=== PATIENT | female | born 1945 | race Caucasian/White ===

== ENCOUNTER → 2016-11-04 | Outpatient (CLI) | payer MEDICARE ==
[2016-11-04 07:21] LABS: Blood Urea Nitrogen 18 mg/dL (7-17); Non-African American GFR(MDRD) >60 (>60 ml/min/1.73 sqM)
--- NOTE | 2016-11-04 08:06 | CT ---
EXAMINATION TYPE: CT chest w con DATE OF EXAM: 11/04/2016 7:54 AM COMPARISON: NONE HISTORY: Follow up to lung mass CT DLP: 156.7 mGycm Automated exposure control for dose reduction was used. CONTRAST: CT scan of the chest is performed with IV Contrast, patient injected with 100 mL of Omnipaque 300. FINDINGS: LUNGS: Again noted is a pleural-based mass right lower lobe posteriorly which measures 3.9 x 2.6 cm c urrently versus 3.9 x 2.6 cm on the prior examination. Again noted is mild associated internal calcif ication. No evidence for chest wall invasion at this time. No associated bony destructive process. No additional masses are evident. Lingular nodular density is unchanged and measures approximately 5.3 mm. No additional nodules are seen with certainty at this point in time. MEDIASTINUM: There are no greater than 1 cm hilar or mediastinal lymph nodes. No pericardial effusi on is seen. Mild atheromatous changes seen of the thoracic aorta with the ectasia is seen and no evid ence for aneurysm. The heart is at the upper limits of normal. Coronary artery calcifications are aga in noted. UPPER ABDOMEN: No significant abnormality appreciated. OTHER: No additional significant abnormality is seen. IMPRESSION: 1. Stable pleural-based mass right lower lobe which has been sampled previously.
== END | disposition home or self-care (01) ==
LOC: RADCTMAIN 06:43
PROVIDERS: ATTEND Thoracic Surgery (Cardiothoracic Vascular Surgery)
DX: R22.2 Localized swelling, mass and lump, trunk (principal)
CPT/HCPCS: 82565; 84520; 71260; 36415; Q9967

== ENCOUNTER → 2017-10-26 | Outpatient (CLI) | payer MEDICARE ==
--- NOTE | 2017-10-26 14:00 | CT ---
EXAMINATION TYPE: CT chest wo con DATE OF EXAM: 10/26/2017 COMPARISON: CT 11/04/[address] 02/13/2016 HISTORY: Follow up scan per patient, chest mass CT DLP: 493 mGycm. Automated Exposure Control for Dose Reduction was Utilized. TECHNIQUE: CT scan of the thorax is performed without IV contrast. FINDINGS: LUNGS: The lungs are grossly clear, there is no concerning parenchymal mass or nodule identified. T here is no pleural effusion or pneumothorax seen. The tracheobronchial tree is patent. MEDIASTINUM: Lack of IV contrast is noted to limit evaluation for mediastinal and especially hilar ad enopathy. There are no definitive greater than 1 cm hilar or mediastinal lymph nodes. No cardiomega ly or pericardial effusion is seen. OTHER: Ascending aorta measures approximately 3.7 cm, there are coronary artery calcifications. Poste rior diaphragmatic hernia on the right. Localized mixed density focus at this level along the posteri or pleural surface shows a similar appearance and measures approximately 4.1 x 2.3 centimeters. There may be a nonobstructive calcification within each kidney. Spinous process of L2 shows an irregular a ppearance but is stable. IMPRESSION: Findings are essentially stable.
== END | disposition home or self-care (01) ==
LOC: RADCTMAIN 12:25
PROVIDERS: ATTEND Thoracic Surgery (Cardiothoracic Vascular Surgery)
DX: R22.2 Localized swelling, mass and lump, trunk (principal)
CPT/HCPCS: 71250

== ENCOUNTER → 2018-03-12 | Outpatient (CLI) | payer MEDICARE ==
--- NOTE | 2018-03-15 10:12 | MM ---
Reason for exam: screening (asymptomatic). Last mammogram was performed 3 years and 6 months ago. History: Patient is postmenopausal. Physical Findings: A clinical breast exam by your physician is recommended on an annual basis and results should be correlated with mammographic findings. MG Screening Mammo w CAD Bilateral CC and MLO view(s) were taken. Prior study comparison: September 14, 2014, bilateral MG screening mammo w CAD. April 28, 2005, bilateral screening mammogram w/CAD. The breast tissue is heterogeneously dense. This may lower the sensitivity of mammography. Stable benign calcifications. There is no discrete abnormality. No significant changes when compared with prior studies. ASSESSMENT: Benign, BI-RAD 2 RECOMMENDATION: Routine screening mammogram of both breasts in 1 year.
== END | disposition home or self-care (01) ==
LOC: RADMAMWWP 09:23
PROVIDERS: ATTEND Family Medicine
DX: Z12.31 Encounter for screening mammogram for malignant neoplasm of breast (principal)
CPT/HCPCS: 77067

== ENCOUNTER → 2019-09-01 | Outpatient (CLI) | payer MEDICARE ==
--- NOTE | 2019-09-05 09:02 | MM ---
Reason for exam: screening (asymptomatic). Last mammogram was performed 1 year and 6 months ago. History: Patient is postmenopausal. Physical Findings: A clinical breast exam by your physician is recommended on an annual basis and results should be correlated with mammographic findings. MG Screening Mammo w CAD Bilateral CC and MLO view(s) were taken. Prior study comparison: March 12, 2018, bilateral MG screening mammo w CAD. September 14, 2014, bilateral MG screening mammo w CAD. There are benign appearing round calcifications in the left breast. No significant changes when compared with prior studies. ASSESSMENT: Benign, BI-RAD 2 RECOMMENDATION: Routine screening mammogram of both breasts in 1 year.
== END | disposition home or self-care (01) ==
LOC: RADMAMWWP 13:39
PROVIDERS: ATTEND Family Medicine
DX: Z12.31 Encounter for screening mammogram for malignant neoplasm of breast (principal)
CPT/HCPCS: 77067

== ENCOUNTER → 2021-05-23 | Outpatient (CLI) | payer MEDICARE ==
--- NOTE | 2021-05-27 09:51 | MM ---
Reason for exam: screening (asymptomatic). Last mammogram was performed 1 year and 9 months ago. History: Patient is postmenopausal. Physical Findings: A clinical breast exam by your physician is recommended on an annual basis and results should be correlated with mammographic findings. MG Screening Mammo w CAD Bilateral CC and MLO view(s) were taken. Prior study comparison: September 01, 2019, bilateral MG screening mammo w CAD. March 12, 2018, bilateral MG screening mammo w CAD. The breast tissue is heterogeneously dense. This may lower the sensitivity of mammography. There are benign appearing round calcifications in the left breast. No significant changes when compared with prior studies. ASSESSMENT: Benign, BI-RAD 2 RECOMMENDATION: Routine screening mammogram of both breasts in 1 year.
== END | disposition home or self-care (01) ==
LOC: RADMAMWWP 14:46
PROVIDERS: ATTEND Family Medicine
DX: Z12.31 Encounter for screening mammogram for malignant neoplasm of breast (principal); Z78.0 Asymptomatic menopausal state
CPT/HCPCS: 77067

== ENCOUNTER → 2022-05-30 | Outpatient (CLI) | payer MEDICARE ==
--- NOTE | 2022-06-02 19:32 | MM ---
Reason for Exam: Screening (asymptomatic). Last screening mammogram was performed 12 month(s) ago. Patient History: Menarche at age 10. First Full-Term at age 19. Postmenopausal. Risk Values: Elsie 5 year model risk: 1.4%. NCI Lifetime model risk: 2.7%. Prior Study Comparison: 03/12/2018 Bilateral Screening Mammogram, [facility]. 09/01/2019 Bilateral Screening Mammogram, [facility]. 05/23/2021 Bilateral Screening Mammogram, [facility]. Tissue Density: The breast tissue is heterogeneously dense. This may lower the sensitivity of mammography. Findings: Analyzed By CAD. Benign bilateral oil cyst calcifications. There is no suspicious group of microcalcifications or new suspicious mass in either breast. Overall Assessment: Benign, BI-RAD 2 Management: Screening Mammogram of both breasts in 1 year. 1. Patient should continue monthly self breast exams. 2. A clinical breast exam by your physician is recommended on an annual basis. 3. This exam should not preclude additional follow-up of suspicious palpable abnormalities. Electronically signed and approved by: Alistair Díaz M.D. Radiologist
== END | disposition home or self-care (01) ==
LOC: RADMAMWWP 15:43
PROVIDERS: ATTEND Family Medicine
DX: Z12.31 Encounter for screening mammogram for malignant neoplasm of breast (principal); Z78.0 Asymptomatic menopausal state
CPT/HCPCS: 77067

== ENCOUNTER 2022-06-05 08:21 | Inpatient (IN) | payer MEDICARE ==
[2022-06-05] MEDS ORDERED: methylPREDNISolone SOD SUCCI 125 MG/2 ML VIAL IV STA (08:32)
[2022-06-05] MEDS ORDERED: FAMOTIDINE 20 MG/2 ML VIAL IV STA (08:32)
[2022-06-05] MEDS ORDERED: diphenhydrAMINE 50 MG/ML 1 ML VIAL IVP STA (08:32)
[2022-06-05] MEDS ORDERED: TRANEXAMIC ACID 1,000 MG in SODIUM CHLORIDE 0.9% 100 ML IVPB ONE (08:36)
[2022-06-05] MEDS ORDERED: SUCCINYLCHOLINE CHLORIDE 200 MG/10 ML VIAL IV STA (08:50)
[2022-06-05] MEDS ORDERED: PROPOFOL 10 MG/ML 20 ML VIAL IV STA (08:50)
--- NOTE | 2022-06-05 09:03 | ED ---
Allergic Reaction HPI - General Source: patient, RN notes reviewed Mode of arrival: ambulatory Limitations: no limitations <Chau Rasheed - Last Filed: 06/05/22 09:03> <Marci Carr - Last Filed: 06/08/22 23:09> - General Chief complaint: Allergic Reaction Stated complaint: Allergic Reaction Time Seen by Provider: 06/05/22 08:25 - History of Present Illness Initial Comments: This a 77-year-old female presents emergency Department with chief complaint of throat, tongue swelling. Patient states that she woke up to this. Patient states she woke up around 5 does not seem to be getting worse. She does not kay t she had an episode similar to this but not this severe she took Benadryl and improved. doesn't admit that she is on lisinopril. Patient denies any other new medications denies taking medications prior arrival. She states it is hard to talk, hard to swallow at this time. She has no known ALLERGIES otherwise. (Chau Rasheed) - Related Data Home Medications Medication Instructions Recorded Confirmed lisinopriL 40 mg PO DAILY 06/05/22 06/05/22 Allergies Allergy/AdvReac Type Severity Reaction Status Date / Time lisinopril Allergy Anaphylaxis Verified 06/05/22 16:10 Review of Systems ROS Other: All systems not noted in ROS Statement are negative. <Chau Rasheed - Last Filed: 06/05/22 09:03> ROS Other: All systems not noted in ROS Statement are negative. <Marci Carr - Last Filed: 06/08/22 23:09> ROS Statement: Those systems with pertinent positive or pertinent negative responses have been documented in the HPI. Past Medical History Past Medical History: Hypertension Additional Past Medical History / Comment(s): Lung mass, Kidney stone History of Any Multi-Drug Resistant Organisms: None Reported Past Surgical History: No Surgical Hx Reported Additional Past Surgical History / Comment(s): no surgeries Past Anesthesia/Blood Transfusion Reactions: No Reported Reaction Past Psychological History: No Psychological Hx Reported Smoking Status: Current every day smoker Past Alcohol Use History: None Reported, Occasional Past Drug Use History: None Reported - Past Family History Father Family Medical History: No Reported History <Chau Rasheed - Last Filed: 06/05/22 09:03> General Exam Limitations: no limitations General appearance: alert, in distress Head exam: Present: atraumatic, normocephalic, normal inspection Eye exam: Present: normal appearance, PERRL, EOMI. Absent: scleral icterus, conjunctival injection, periorbital swelling ENT exam: Present: mucous membranes moist, TM's normal bilaterally. Absent: normal oropharynx (Significant angioedema, patient is drooling, difficulty swallow secretions.) Neck exam: Present: normal inspection, full ROM. Absent: tenderness, meningismus, lymphadenopathy Respiratory exam: Present: normal lung sounds bilaterally. Absent: respiratory distress, wheezes, rales, rhonchi, stridor Cardiovascular Exam: Present: regular rate, normal rhythm, normal heart sounds. Absent: systolic murmur, diastolic murmur, rubs, gallop, clicks Neurological exam: Present: alert Skin exam: Present: warm, dry, intact, normal color. Absent: rash <Chau Rasheed M - Last Filed: 06/05/22 09:03> Course Vital Signs 06/05/22 06/05/22 06/05/22 08:24 08:34 08:40 Temperature 98 F Pulse Rate 89 83 85 Respiratory 14 9 L Rate Blood Pressure 204/99 194/102 O2 Sat by Pulse 97 97 95 Oximetry Fraction of Inspired Oxygen (FIO2) 06/05/22 06/05/22 06/05/22 08:50 09:00 09:10 Temperature Pulse Rate 87 83 79 Respiratory 18 24 16 Rate Blood Pressure 195/96 152/112 173/98 O2 Sat by Pulse 100 99 99 Oximetry Fraction of Inspired Oxygen (FIO2) 06/05/22 06/05/22 06/05/22 09:11 09:14 09:20 Temperature Pulse Rate 91 Respiratory 18 Rate Blood Pressure 127/65 O2 Sat by Pulse 99 Oximetry Fraction of 100 100 Inspired Oxygen (FIO2) 06/05/22 06/05/22 06/05/22 09:30 09:40 09:43 Temperature Pulse Rate 85 82 Respiratory 16 20 Rate Blood Pressure 171/83 131/67 O2 Sat by Pulse 99 99 Oximetry Fraction of 50 Inspired Oxygen (FIO2) 06/05/22 06/05/22 06/05/22 09:50 10:00 10:10 Temperature Pulse Rate 75 77 75 Respiratory 18 22 18 Rate Blood Pressure 84/47 60/35 87/55 O2 Sat by Pulse 98 98 98 Oximetry Fraction of Inspired Oxygen (FIO2) 06/05/22 06/05/22 06/05/22 10:20 10:30 10:40 Temperature Pulse Rate 76 80 70 Respiratory 18 16 18 Rate Blood Pressure 115/62 126/87 154/99 O2 Sat by Pulse 99 99 99 Oximetry Fraction of Inspired Oxygen (FIO2) 06/05/22 06/05/22 06/05/22 10:50 11:00 11:10 Temperature Pulse Rate 71 72 70 Respiratory 18 16 18 Rate Blood Pressure 88/51 86/48 104/68 O2 Sat by Pulse 98 98 99 Oximetry Fraction of Inspired Oxygen (FIO2) 06/05/22 06/05/22 06/05/22 11:20 11:30 11:40 Temperature Pulse Rate 74 71 Respiratory 16 18 Rate Blood Pressure 104/60 124/78 O2 Sat by Pulse 98 99 Oximetry Fraction of 50 Inspired Oxygen (FIO2) 06/05/22 06/05/22 06/05/22 12:00 12:30 13:00 Temperature Pulse Rate 71 75 74 Respiratory 18 24 18 Rate Blood Pressure 131/69 145/82 139/71 O2 Sat by Pulse 100 100 98 Oximetry Fraction of Inspired Oxygen (FIO2) 06/05/22 06/05/22 06/05/22 13:30 14:00 14:30 Temperature Pulse Rate 72 76 75 Respiratory 18 18 18 Rate Blood Pressure 109/64 113/66 138/74 O2 Sat by Pulse 99 100 100 Oximetry Fraction of Inspired Oxygen (FIO2) 06/05/22 06/05/22 06/05/22 15:00 15:30 15:59 Temperature Pulse Rate 73 75 Respiratory 18 18 Rate Blood Pressure 127/67 100/56 O2 Sat by Pulse 97 98 Oximetry Fraction of 50 Inspired Oxygen (FIO2) 06/05/22 06/05/22 06/05/22 16:00 16:09 16:24 Temperature Pulse Rate 79 76 74 Respiratory 16 Rate Blood Pressure 109/63 O2 Sat by Pulse 99 Oximetry Fraction of Inspired Oxygen (FIO2) 06/05/22 06/05/22 06/05/22 16:30 17:00 17:30 Temperature Pulse Rate 75 78 78 Respiratory 18 18 18 Rate Blood Pressure 135/75 122/62 121/67 O2 Sat by Pulse 98 98 98 Oximetry Fraction of Inspired Oxygen (FIO2) 06/05/22 06/05/22 06/05/22 18:00 18:30 19:00 Temperature Pulse Rate 79 79 79 Respiratory 18 18 18 Rate Blood Pressure 128/65 129/69 139/75 O2 Sat by Pulse 98 99 98 Oximetry Fraction of Inspired Oxygen (FIO2) 06/05/22 06/05/22 06/05/22 19:22 19:26 19:30 Temperature Pulse Rate 80 81 Respiratory 18 Rate Blood Pressure 137/72 O2 Sat by Pulse 99 Oximetry Fraction of 50 Inspired Oxygen (FIO2) 06/05/22 06/05/22 06/05/22 19:38 20:00 20:30 Temperature Pulse Rate 80 82 81 Respiratory 18 18 Rate Blood Pressure 141/71 152/77 O2 Sat by Pulse 99 98 Oximetry Fraction of Inspired Oxygen (FIO2) 06/05/22 06/05/22 06/05/22 21:00 21:30 22:00 Temperature Pulse Rate 85 81 89 Respiratory 18 17 18 Rate Blood Pressure 149/79 81/45 86/49 O2 Sat by Pulse 98 93 L 95 Oximetry Fraction of Inspired Oxygen (FIO2) 06/05/22 06/05/22 06/05/22 22:30 23:00 23:15 Temperature Pulse Rate 92 90 89 Respiratory 18 18 18 Rate Blood Pressure 115/59 126/64 144/72 O2 Sat by Pulse 97 99 99 Oximetry Fraction of Inspired Oxygen (FIO2) 06/05/22 06/05/22 06/06/22 23:30 23:59 00:00 Temperature Pulse Rate 87 88 88 Respiratory 18 18 Rate Blood Pressure 140/72 148/79 O2 Sat by Pulse 100 99 Oximetry Fraction of 40 Inspired Oxygen (FIO2) 06/06/22 06/06/22 06/06/22 00:10 00:30 01:00 Temperature Pulse Rate 97 89 90 Respiratory 18 18 Rate Blood Pressure 127/64 110/58 O2 Sat by Pulse 98 100 Oximetry Fraction of Inspired Oxygen (FIO2) 06/06/22 06/06/22 06/06/22 01:30 02:00 02:30 Temperature 98.3 F Pulse Rate 88 88 86 Respiratory 18 18 18 Rate Blood Pressure 138/63 127/59 102/55 O2 Sat by Pulse 98 97 98 Oximetry Fraction of Inspired Oxygen (FIO2) 06/06/22 06/06/22 06/06/22 03:00 03:30 03:32 Temperature Pulse Rate 86 86 Respiratory 18 18 Rate Blood Pressure 116/60 120/58 O2 Sat by Pulse 99 99 Oximetry Fraction of 40 Inspired Oxygen (FIO2) 06/06/22 06/06/22 06/06/22 03:36 03:44 04:00 Temperature 97.9 F Pulse Rate 87 87 89 Respiratory 18 Rate Blood Pressure 125/61 O2 Sat by Pulse 99 Oximetry Fraction of Inspired Oxygen (FIO2) 06/06/22 06/06/22 06/06/22 04:30 05:00 05:42 Temperature Pulse Rate 89 90 98 Respiratory 18 18 18 Rate Blood Pressure 114/58 115/51 125/56 O2 Sat by Pulse 99 99 99 Oximetry Fraction of Inspired Oxygen (FIO2) 06/06/22 06/06/22 06/06/22 06:00 07:00 07:51 Temperature Pulse Rate 93 91 90 Respiratory 17 12 Rate Blood Pressure 125/56 121/57 O2 Sat by Pulse 97 97 Oximetry Fraction of 35 Inspired Oxygen (FIO2) 06/06/22 06/06/22 06/06/22 08:00 08:15 09:00 Temperature Pulse Rate 90 97 93 Respiratory 18 16 Rate Blood Pressure 127/59 108/50 O2 Sat by Pulse 97 95 Oximetry Fraction of Inspired Oxygen (FIO2) 06/06/22 06/06/22 06/06/22 09:18 10:00 11:00 Temperature 100.6 F H Pulse Rate 90 98 Respiratory 9 L 10 L Rate Blood Pressure 126/55 130/89 O2 Sat by Pulse 94 L 96 Oximetry Fraction of Inspired Oxygen (FIO2) 06/06/22 06/06/22 06/06/22 11:05 11:25 12:00 Temperature Pulse Rate 92 92 87 Respiratory 18 Rate Blood Pressure 119/55 O2 Sat by Pulse 95 Oximetry Fraction of 35 Inspired Oxygen (FIO2) 06/06/22 06/06/22 13:00 14:00 Temperature Pulse Rate 87 84 Respiratory 18 18 Rate Blood Pressure 112/57 128/64 O2 Sat by Pulse 95 95 Oximetry Fraction of Inspired Oxygen (FIO2) Medical Decision Making - Lab Data Result diagrams: 06/08/22 06:25 06/08/22 14:56 <Marci Carr - Last Filed: 06/08/22 23:09> - Medical Decision Making Upon arrival patient is placed into room 3. I evaluated the patient myself as PA voices concern of airway compromise. She does have drooling and hoarseness to her voice to where she is unable to talk. Tongue is markedly protruding. Floor of mouth is swollen. I am unable to visualize posterior pharynx due to marked swelling. She is moved into trauma bay 1. I discussed intubation with the patient. She does verbally agree as well as her family at bedside however written consent not obtained due to emergent need to secure the airway. Anesthesias call. Decision is made to intubate the patient. She is successfully intubated by the MECH[employer]ICAL SHOVEL OPERATOR. Placed on a propofol drip for sedation for which the patient does remain agitated at max dosing. She has been switched to a Versed drip with fentanyl pushes. Patient was given 125 of Solu-Medrol, 0.3 mg epi, 20 mg pepcid, 50 mg benadryl and 1 g txa. Spoke with Dr. Rodriguez who agreed to admit the patient. I also spoke with Dr. Simpson who agreed to take the patient into the ICU. Patients family is updated that concern is for angioedema due to angie inhibitor use and that the patient should never be on this medication again. (Marci Carr) - Lab Data Lab Results 06/05/22 06/05/22 06/05/22 Range/Units 09:08 09:08 09:36 WBC 10.5 (3.8-10.6) k/uL RBC 4.65 (3.80-5.40) m/uL Hgb 14.9 (11.4-16.0) gm/dL Hct 44.5 (34.0-46.0) % MCV 95.8 (80.0-100.0) fL MCH 32.1 (25.0-35.0) pg MCHC 33.5 (31.0-37.0) g/dL RDW 13.3 (11.5-15.5) % Plt Count 339 (150-450) k/uL MPV 8.7 Neutrophils % 70 % Lymphocytes % 19 % Monocytes % 7 % Eosinophils % 2 % Basophils % 1 % Neutrophils # 7.3 (1.3-7.7) k/uL Lymphocytes # 2.0 (1.0-4.8) k/uL Monocytes # 0.7 (0-1.0) k/uL Eosinophils # 0.2 (0-0.7) k/uL Basophils # 0.1 (0-0.2) k/uL Sample Site lrad ABG pH 7.29 L (7.35-7.45) ABG pCO2 51 H (35-45) mmHg ABG pO2 >400 H (83-108) mmHg ABG HCO3 25 (21-25) mmol/L ABG Total CO2 26 H (19-24) mmol/L ABG O2 Saturation 98.8 H (94-97) % ABG Base Excess -2.1 mmol/L Kelechi Test Yes FiO2 100 % Sodium 136 L (137-145) mmol/L Potassium 4.5 (3.5-5.1) mmol/L Chloride 101 (98-107) mmol/L Carbon Dioxide 28 (22-30) mmol/L Anion Gap 7 mmol/L BUN 18 H (7-17) mg/dL Creatinine 0.73 (0.52-1.04) mg/dL Est GFR (CKD-EPI)AfAm >90 (>60 ml/min/1.73 sqM) Est GFR (CKD-EPI)NonAf 80 (>60 ml/min/1.73 sqM) Glucose 111 H (74-99) mg/dL Calcium 9.4 (8.4-10.2) mg/dL Total Bilirubin 0.6 (0.2-1.3) mg/dL AST 29 (14-36) U/L ALT 24 (4-34) U/L Alkaline Phosphatase 118 (38-126) U/L Total Protein 7.0 (6.3-8.2) g/dL Albumin 4.6 (3.5-5.0) g/dL Critical Care Time Critical Care Time: Yes Total Critical Care Time: 35 <Chau Rasheed - Last Filed: 06/05/22 09:03> Disposition Time of Disposition: 09:03 <Chau Rasheed - Last Filed: 06/05/22 09:03> <Marci Carr - Last Filed: 06/08/22 23:09> Clinical Impression: Angioedema Disposition: ADMITTED IP TO THIS [facility] Condition: Serious
[2022-06-05 09:16] LABS: Basophils # (A) 0.1 k/uL (0-0.2); Basophils % (A) 1 %; Eosinophils # (A) 0.2 k/uL (0-0.7); Eosinophils % (A) 2 %; HCT 44.5 % (34.0-46.0); HGB 14.9 gm/dL (11.4-16.0); Lymphocytes % (A) 19 %; MCH 32.1 pg (25.0-35.0); MCHC 33.5 g/dL (31.0-37.0); MCV 95.8 fL (80.0-100.0); Mean Platelet Volume 8.7; Monocytes # (A) 0.7 k/uL (0-1.0); Monocytes % (A) 7 %; Neutrophils # (A) 7.3 k/uL (1.3-7.7); Neutrophils % (A) 70 %; Platelet Count 339 k/uL (150-450); RBC 4.65 m/uL (3.80-5.40); RDW 13.3 % (11.5-15.5); WBC 10.5 k/uL (3.8-10.6)
[2022-06-05] MEDS: MIDAZOLAM 1 MG/ML 5 ML VIAL IV STA ×2 (09:25→09:35)
[2022-06-05 09:26] LABS: ALT 24 U/L (4-34); AST 29 U/L (14-36); African American GFR (CKD) >90 (>60 ml/min/1.73 sqM); Albumin 4.6 g/dL (3.5-5.0); Alkaline Phosphatase 118 U/L (38-126); Anion Gap 7 mmol/L; Blood Urea Nitrogen 18 mg/dL (7-17); Calcium 9.4 mg/dL (8.4-10.2); Carbon Dioxide 28 mmol/L (22-30); Chloride 101 mmol/L (98-107); Glucose 111 mg/dL (74-99); Non-African American GFR(CKD) 80 (>60 ml/min/1.73 sqM); Potassium 4.5 mmol/L (3.5-5.1); Sodium 136 mmol/L (137-145); Total Bilirubin 0.6 mg/dL (0.2-1.3)
[2022-06-05 09:39] LABS: ABG Base Excess -2.1 mmol/L; ABG HCO3 25 mmol/L (21-25); ABG Oxygen Saturation 98.8 % (94-97); ABG PCO2 51 mmHg (35-45); ABG PH 7.29 (7.35-7.45); ABG PO2 >400 mmHg (83-108); ABG TCO2 26 mmol/L (19-24); Allen Test Performed? Yes
[2022-06-05] MEDS ORDERED: NALOXONE 0.4 MG/ML 1 ML VIAL IV PRN (09:45)
--- NOTE | 2022-06-05 10:00 | XR ---
EXAMINATION TYPE: XR chest 1V confirm line plcma DATE OF EXAM: 06/05/2022 COMPARISON: 03/04/2016 HISTORY: 77-year-old female ET and OG tube, line placement. TECHNIQUE: Single frontal view of the chest is obtained. FINDINGS: ET tube tip is satisfactory, 3.0 cm from the rubina. The NG tube is short. The tip is at the GE junct ion. The tube could be advanced by 8 cm so that the side hole at or since. Heart upper limits of norm al in size. Mild hyperinflation. Mild interstitial prominence is unchanged. There is mild patchy righ t basilar opacity now noted. IMPRESSION: 1. Satisfactory ET tube. 2. The NG tube is short with tip at the GE junction. Advance by 8 cm so that the side hole enters the stomach. 3. Developing patchy atelectasis versus infiltrate at the right base.
[2022-06-05] MEDS: SODIUM CHLORIDE 0.9% 1,000 ML IV SCH ×2 (10:11→19:07)
[2022-06-05] MEDS: MIDAZOLAM HCL 50 MG in SODIUM CHLORIDE 0.9% 40 ML IV SCH ×4 (10:15→22:56)
[2022-06-05] MEDS: fentaNYL (PF) 50 MCG/ML 2 ML AMP IVP PRN ×3 (10:31→21:25)
--- NOTE | 2022-06-05 13:30 | P.CNPUL ---
History of Present Illness Consult date: 06/05/22 Requesting physician: Chilo Jones Reason for consult: dyspnea, hypoxemia, other Chief complaint: Difficulty breathing. History of present illness: Pulmonary/critical care consult dated 06/05/2022. 77-year-old female who came to the emergency department on June 05, throat and tongue swelling. It started this morning at about 5:00, and he got progressively worse, and for that reason, she came in to be evaluated. She was thought to have a case of angioedema, caused by lisinopril. Her airways became more more compromise, and according to the ER physician, anesthesia was called, and the patient was intubated. She is now in the emergency room, trauma room 1, on the mechanical ventilator. Her home medications include only Advil, and lisinopril. Her past medical history includes hypertension, kidney stones, and a lung mass, that was biopsied, and was found to be benign. She is a current every day smoker. She does not use illicit drugs or alcohol. CBC is normal. Blood gases show pO2 of greater than 400, pCO2 of 51, and pH is 7.29. Sodium 136, potassium 4.5, chlorides 101, CO2 28, anion gap 7, BUN 18, creatinine 0.73. Chest x-ray shows proper placement of the endotracheal tube, and NG tube and needs to be advanced, and some patchy atelectasis versus infiltrate at the right lung base. Review of Systems REVIEW OF SYSTEMS: CONSTITUTIONAL: [Negative.] NEUROLOGIC: [ Negative.] HEENT: Throat and tongue swelling. CARDIAC: [Negative.] PULMONARY: Shortness of breath. GI: [Negative.] : [Negative.] RHEUMATOLOGIC: [ Negative.] IMMUNOLOGIC: [ Negative.] ENDOCRINE: [Negative. ] DERMATOLOGIC: [Negative.] Past Medical History Past Medical History: Hypertension Additional Past Medical History / Comment(s): Lung mass, Kidney stone History of Any Multi-Drug Resistant Organisms: None Reported Past Surgical History: No Surgical Hx Reported Additional Past Surgical History / Comment(s): no surgeries Past Anesthesia/Blood Transfusion Reactions: No Reported Reaction Past Psychological History: No Psychological Hx Reported Smoking Status: Current every day smoker Past Alcohol Use History: None Reported, Occasional Past Drug Use History: None Reported - Past Family History Father Family Medical History: No Reported History Medications and Allergies Home Medications Medication Instructions Recorded Confirmed Type lisinopriL 40 mg PO DAILY 06/05/22 06/05/22 History Allergies Allergy/AdvReac Type Severity Reaction Status Date / Time No Known Allergies Allergy Verified 06/05/22 09:52 Physical Exam Osteopathic Statement: *. No significant issues noted on an osteopathic structural exam other than those noted in the History and Physical/Consult. Vitals: Vital Signs Temp Pulse Resp BP Pulse Ox FiO2 06/05/22 11:40 50 06/05/22 11:30 71 18 124/78 99 06/05/22 11:20 74 16 104/60 98 06/05/22 11:10 70 18 104/68 99 06/05/22 11:00 72 16 86/48 98 06/05/22 10:50 71 18 88/51 98 06/05/22 10:40 70 18 154/99 99 06/05/22 10:30 80 16 126/87 99 06/05/22 10:20 76 18 115/62 99 06/05/22 10:10 75 18 87/55 98 06/05/22 10:00 77 22 60/35 98 06/05/22 09:50 75 18 84/47 98 06/05/22 09:43 50 06/05/22 09:40 82 20 131/67 99 06/05/22 09:30 85 16 171/83 99 06/05/22 09:20 91 18 127/65 99 06/05/22 09:14 100 06/05/22 09:11 100 06/05/22 09:10 79 16 173/98 99 06/05/22 09:00 83 24 152/112 99 06/05/22 08:50 87 18 195/96 100 06/05/22 08:40 85 9 L 194/102 95 06/05/22 08:34 83 14 204/99 97 06/05/22 08:24 98 F 89 97 Intake and Output 06/04/22 06/05/22 06/05/22 22:59 06:59 14:59 Intake Total 33.490 Balance 33.490 Intake: Intake, IV Titration 33.490 Amount Midazolam HCl 50 mg In 18.917 Sodium Chloride 0.9% 40 ml @ 1 MG/HR 1 mls/hr IV .Q24H [facility] Rx#:[id number] propofoL 1,000 mg In 14.573 Empty Bag 1 bag @ 15 MCG/ KG/MIN 5.144 mls/hr IV . [id number] [facility] Rx#:[id number] Other: Weight 57.153 kg No acute distress, sedated, with an orally placed endotracheal tube. HEENT examination is grossly unremarkable. Neck supple. Full range of motion. No adenopathy thyromegaly or neck vein distention. Cardiovascular examination reveals regular rhythm rate. S1-S2 normal. No S3 or S4. No discernible murmur noted. Heart rate 71 bpm. Lungs reveal clear breath sounds. Breath sounds are equal bilaterally. No adventitious lung sounds including wheezes rhonchi or crackles. Saturations are 99%. Abdomen soft bowel sounds are heard. No masses or tenderness. Extremities are intact. No cyanosis clubbing or edema. Skin is without rash or lesion. Neurologic examination cannot be evaluated as the patient's currently sedated. Results - Laboratory Findings CBC and BMP: 06/05/22 09:08 06/05/22 09:08 ABG ABG pH 7.29 (7.35-7.45) L 06/05/22 09:36 ABG pCO2 51 mmHg (35-45) H 06/05/22 09:36 ABG pO2 >400 mmHg (83-108) H 06/05/22 09:36 ABG O2 Saturation 98.8 % (94-97) H 06/05/22 09:36 Abnormal lab findings: Abnormal Labs 06/05/22 06/05/22 09:08 09:36 ABG pH 7.29 L ABG pCO2 51 H ABG pO2 >400 H ABG Total CO2 26 H ABG O2 Saturation 98.8 H Sodium 136 L BUN 18 H Glucose 111 H - Diagnostic Findings Chest x-ray: image reviewed Assessment and Plan Assessment: Severe angioedema, with airway compromise, requiring intubation and mechanical ventilation on 06/05/2022. History of hypertension. History of kidney stones. History of a lung mass, status post fine-needle aspiration, which revealed a benign lesion. Plan: Plan dated 06/05/2022. The patient is resting comfortably on the ventilator, down in the emergency room, trauma room 1. The patient's received Solu-Medrol, as well as Benadryl, Pepcid, and tranexamic acid. The patient was intubated in the emergency department, by ER, and anesthesia. The patient is currently on a med past lambda drip. We are waiting for a bed to open up in the intensive care unit. Additional recommendations and suggestions are forthcoming. The patient should be switched to propofol. I also recommended a fentanyl drip for additional sed ation if not controlled by propofol. The patient should also continue on some corticosteroids, as well as Benadryl, and Pepcid. Time with Patient: Greater than 30
[2022-06-05] MEDS: IPRATROPIUM-ALBUTEROL 3 ML NEB INHALATION SCH ×3 (16:09→23:49)
[2022-06-06] MEDS: SODIUM CHLORIDE 0.9% 1,000 ML IV SCH ×4 (02:13→23:39)
[2022-06-06] MEDS: MIDAZOLAM HCL 50 MG in SODIUM CHLORIDE 0.9% 40 ML IV SCH ×3 (02:30→08:29)
[2022-06-06] MEDS: IPRATROPIUM-ALBUTEROL 3 ML NEB INHALATION SCH ×6 (03:35→23:10)
[2022-06-06 05:46] LABS: ABG Base Excess -4.8 mmol/L; ABG HCO3 21 mmol/L (21-25); ABG Oxygen Saturation 98.5 % (94-97); ABG PCO2 38 mmHg (35-45); ABG PH 7.35 (7.35-7.45); ABG PO2 333 mmHg (83-108); ABG TCO2 22 mmol/L (19-24); Allen Test Performed? Yes
--- NOTE | 2022-06-06 08:33 | P.HPIM ---
History of Present Illness H&P Date: 06/05/22 Chief Complaint: ramon Alanis is a 77 yo F with PMH of HTN who presented to the ED with shortness of breath and tongue swelling. Pt intubated and sedated, history obtained from family and chart review. She was apparently in her usual state of health until early this morning around 5 am her son checked on her and noted pt to have severe tongue swelling and shortness of breath so called EMS. Family denies any obvious exposures to toxins, no history of asthma, allergies, anaphylaxis. Family notes a wood burning stove in the house that was recently started for the winter and pt does take lisinopril. On presentation pt tachycardic and tachypneic, was noted with severe angioedema and intubated. Labs reviewed and unremarkable. Review of Systems ROS unobtainable: due to endotracheal tube Past Medical History Past Medical History: Hypertension Additional Past Medical History / Comment(s): Lung mass, Kidney stone History of Any Multi-Drug Resistant Organisms: None Reported Past Surgical History: No Surgical Hx Reported Additional Past Surgical History / Comment(s): no surgeries Past Anesthesia/Blood Transfusion Reactions: No Reported Reaction Past Psychological History: No Psychological Hx Reported Smoking Status: Current every day smoker Past Alcohol Use History: None Reported, Occasional Past Drug Use History: None Reported - Past Family History Father Family Medical History: No Reported History Medications and Allergies Home Medications Medication Instructions Recorded Confirmed Type lisinopriL 40 mg PO DAILY 06/05/22 06/05/22 History Allergies Allergy/AdvReac Type Severity Reaction Status Date / Time lisinopril Allergy Anaphylaxis Verified 06/05/22 16:10 Physical Exam Vitals: Vital Signs Temp Pulse Resp BP Pulse Ox FiO2 06/06/22 08:15 97 06/06/22 07:51 90 35 06/06/22 07:00 91 12 121/57 97 06/06/22 06:00 93 17 125/56 97 06/06/22 05:42 98 18 125/56 99 06/06/22 05:00 90 18 115/51 99 06/06/22 04:30 89 18 114/58 99 06/06/22 04:00 97.9 F 89 18 125/61 99 06/06/22 03:44 87 06/06/22 03:36 87 06/06/22 03:32 40 06/06/22 03:30 86 18 120/58 99 06/06/22 03:00 86 18 116/60 99 06/06/22 02:30 98.3 F 86 18 102/55 98 06/06/22 02:00 88 18 127/59 97 1822 01:30 88 18 138/63 98 22 01:00 90 18 110/58 100 18 00:30 89 18 127/64 98 18 00:10 97 06/06/22 00:00 88 18 148/79 99 40 1722 23:59 88 22 23:30 87 18 140/72 100 06/05/22 23:15 89 18 144/72 99 06/05/22 23:00 90 18 126/64 99 06/05/22 22:30 92 18 115/59 97 06/05/22 22:00 89 18 86/49 95 06/05/22 21:30 81 17 81/45 93 L 06/05/22 21:00 85 18 149/79 98 06/05/22 20:30 81 18 152/77 98 06/05/22 20:00 82 18 141/71 99 06/05/22 19:38 80 06/05/22 19:30 81 18 137/72 99 06/05/22 19:26 80 06/05/22 19:22 50 06/05/22 19:00 79 18 139/75 98 06/05/22 18:30 79 18 129/69 99 06/05/22 18:00 79 18 128/65 98 06/05/22 17:30 78 18 121/67 98 06/05/22 17:00 78 18 122/62 98 06/05/22 16:30 75 18 135/75 98 22 16:24 74 22 16:09 76 06/05/22 16:00 79 16 109/63 99 06/05/22 15:59 50 06/05/22 15:30 75 18 100/56 98 06/05/22 15:00 73 18 127/67 97 06/05/22 14:30 75 18 138/74 100 06/05/22 14:00 76 18 113/66 100 22 13:30 72 18 109/64 99 06/05/22 13:00 74 18 139/71 98 06/05/22 12:30 75 24 145/82 100 06/05/22 12:00 71 18 131/69 100 06/05/22 11:40 50 06/05/22 11:30 71 18 124/78 99 06/05/22 11:20 74 16 104/60 98 06/05/22 11:10 70 18 104/68 99 06/05/22 11:00 72 16 86/48 98 06/05/22 10:50 71 18 88/51 98 06/05/22 10:40 70 18 154/99 99 06/05/22 10:30 80 16 126/87 99 06/05/22 10:20 76 18 115/62 99 06/05/22 10:10 75 18 87/55 98 06/05/22 10:00 77 22 60/35 98 06/05/22 09:50 75 18 84/47 98 06/05/22 09:43 50 06/05/22 09:40 82 20 131/67 99 06/05/22 09:30 85 16 171/83 99 06/05/22 09:20 91 18 127/65 99 06/05/22 09:14 100 06/05/22 09:11 100 06/05/22 09:10 79 16 173/98 99 06/05/22 09:00 83 24 152/112 99 06/05/22 08:50 87 18 195/96 100 06/05/22 08:40 85 9 L 194/102 95 06/05/22 08:34 83 14 204/99 97 Intake and Output 06/05/22 06/06/22 06/06/22 22:59 06:59 14:59 Intake Total 82.75 97.25 Output Total 500 Balance 82.75 -402.75 Intake: Intake, IV Titration 82.75 97.25 Amount Midazolam HCl 50 mg In 82.75 97.25 Sodium Chloride 0.9% 40 ml @ 1 MG/HR 1 mls/hr IV .Q24H [facility] Rx#:[id number] Output: Urine 500 Gen: well developed elderly female. Intubated and sedated HEENT: NC/AT, mmm Neck: Supple, no JVD,no thyromegaly CV: RRR, no murmur Lungs: normal effort, clear throughout Abd: soft, nontender, non distended Skin: warm and dry Results CBC & Chem 7: 06/05/22 09:08 06/05/22 09:08 Labs: Abnormal Lab Results - Last 24 Hours (Table) 06/05/22 06/05/22 06/06/22 Range/Units 09:08 09:36 05:43 ABG pH 7.29 L (7.35-7.45) ABG pCO2 51 H (35-45) mmHg ABG pO2 >400 H 333 H (83-108) mmHg ABG Total CO2 26 H (19-24) mmol/L ABG O2 Saturation 98.8 H 98.5 H (94-97) % Sodium 136 L (137-145) mmol/L BUN 18 H (7-17) mg/dL Glucose 111 H (74-99) mg/dL Assessment and Plan Plan: Severe angioedema with airway compromise. Pt intubated and sedated. Pulmonology consulted. continue IV steroids, benadryl scheduled
[2022-06-06] MEDS ORDERED: methylPREDNISolone SOD SUCCI 125 MG/2 ML VIAL IV SCH (08:45)
[2022-06-06] MEDS: diphenhydrAMINE 50 MG/ML 1 ML VIAL IVP SCH ×4 (08:47→23:39)
[2022-06-06] MEDS: methylPREDNISolone SOD SUCCI 40 MG/ML 1 ML VIAL IV SCH ×4 (08:56→23:39)
--- NOTE | 2022-06-06 09:21 | XR ---
EXAMINATION TYPE: XR chest 1V portable DATE OF EXAM: 06/06/2022 COMPARISON: 06/05/2022 HISTORY: Shortness of breath TECHNIQUE: Single frontal view of the chest is obtained. FINDINGS: ET and NG tube stable with persistent bilateral infiltrates slightly improved on the right and small effusion. Diffuse interstitial pattern. Diffuse osteopenia with arthropathy shoulders. Hea rt size stable. Underlying COPD suspected. IMPRESSION: 1. Bilateral infiltrate improved on the right. Correlate for pneumonia with underlying COPD and chron ic interstitial lung disease. Superimposed mild venous congestion or interstitial pneumonitis in the differential diagnosis.
[2022-06-06] MEDS: ACETAMINOPHEN IV (For NPO) 1,000 MG in EMPTY BAG 1 BAG IVPB SCH ×2 (10:21→18:46)
[2022-06-06] MEDS: FAMOTIDINE 20 MG/2 ML VIAL IV SCH ×2 (10:22→21:21)
--- NOTE | 2022-06-06 10:41 | P.PN ---
Subjective Progress Note Date: 06/06/22 Principal diagnosis: Angioedema. Pulmonary/critical care consult dated 06/05/2022. 77-year-old female who came to the emergency department on June 05, throat and tongue swelling. It started this morning at about 5:00, and he got progressively worse, and for that reason, she came in to be evaluated. She was thought to have a case of angioedema, caused by lisinopril. Her airways became more more compromise, and according to the ER physician, anesthesia was called, and the patient was intubated. She is now in the emergency room, trauma room 1, on the mechanical ventilator. Her home medications include only Advil, and lisinopril. Her past medical history includes hypertension, kidney stones, and a lung mass, that was biopsied, and was found to be benign. She is a current every day smoker. She does not use illicit drugs or alcohol. CBC is normal. Blood gases show pO2 of greater than 400, pCO2 of 51, and pH is 7.29. Sodium 136, potassium 4.5, chlorides 101, CO2 28, anion gap 7, BUN 18, creatinine 0.73. Chest x-ray shows proper placement of the endotracheal tube, and NG tube and needs to be advanced, and some patchy atelectasis versus infiltrate at the right lung base. Progress note dated 06/06/2022. The patient is again seen in trauma room #1. She was seen in consultation yesterday. She had angioedema, that was caused by lisinopril. She came in with throat and tongue swelling, and required intubation. She remains on the mechanical ventilator. Settings include the volume assist control, rate 18, tidal volume 450, FiO2 30%, and PEEP of 5. Blood gases show a PaO2 of 333, pCO2 38, and a pH is 7.35. Blood gases were done presumably on 40%. The patient's getting saline at 130 mL an hour, and a Versed drip at 15 mg an hour. Labs today only include a blood gas. We recommended steroids, Benadryl, Pepcid, and propofol, and none of that has been done. We did drop her FiO2 down to 30%. We did order a chest x-ray. Chest x-ray did reveal bilateral infiltrates. Objective - Vital Signs Vital signs: Vital Signs Temp 100.6 F H 06/06/22 09:18 Pulse 93 06/06/22 09:00 Resp 16 06/06/22 09:00 BP 108/50 06/06/22 09:00 Pulse Ox 95 06/06/22 09:00 FiO2 35 06/06/22 07:51 Intake & Output 06/05/22 06/06/22 06/06/22 18:59 06:59 18:59 Intake Total 84.990 147.25 61.380 Output Total 500 Balance 84.990 -352.75 61.380 Weight 57.153 kg Intake: Intake, IV Titration 84.990 147.25 61.380 Amount Midazolam HCl 50 mg In 70.417 147.25 50.75 Sodium Chloride 0.9% 40 ml @ 1 MG/HR 1 mls/hr IV .Q24H [facility] Rx#:[id number] propofoL 1,000 mg In 14.573 Empty Bag 1 bag @ 15 MCG/ KG/MIN 5.144 mls/hr IV . [id number] [facility] Rx#:[id number] propofoL 1,000 mg In 10.630 Empty Bag 1 bag @ 15 MCG/ KG/MIN 5.144 mls/hr IV . [id number] [facility] Rx#:[id number] Output: Urine 500 - Exam No acute distress, sedated, with an orally placed endotracheal tube. HEENT examination is grossly unremarkable. Neck supple. Full range of motion. No adenopathy thyromegaly or neck vein distention. Cardiovascular examination reveals regular rhythm rate. S1-S2 normal. No S3 or S4. No discernible murmur noted. Heart rate 93 bpm. Lungs reveal scattered bilateral rhonchi. Breath sounds are coarse. No wheezes or crackles. Breath sounds are equal bilaterally. Saturations are 95%. Abdomen soft bowel sounds are heard. No masses or tenderness. Extremities are intact. No cyanosis clubbing or edema. Skin is without rash or lesion. Neurologic examination cannot be evaluated as the patient's currently sedated. - Labs CBC & Chem 7: 06/05/22 09:08 06/05/22 09:08 Labs: Abnormal Lab Results - Last 24 Hours (Table) 06/06/22 Range/Units 05:43 ABG pO2 333 H (83-108) mmHg ABG O2 Saturation 98.5 H (94-97) % Assessment and Plan Assessment: Severe angioedema, with airway compromise, requiring intubation and mechanical ventilation on 06/05/2022. Possible aspiration pneumonia versus fluid overload. History of hypertension. History of kidney stones. History of a lung mass, status post fine-needle aspiration, which revealed a benign lesion. Plan: Plan dated 06/05/2022. The patient is resting comfortably on the ventilator, down in the emergency room, trauma room 1. The patient's received Solu-Medrol, as well as Benadryl, Pepcid, and tranexamic acid. The patient was intubated in the emergency department, by ER, and anesthesia. The patient is currently on a med past lambda drip. We are waiting for a bed to open up in the intensive care unit. Additional recommendations and suggestions are forthcoming. The patient should be switched to propofol. I also recommended a fentanyl drip for additional sedation if not controlled by propofol. The patient should also continue on some corticosteroids, as well as Benadryl, and Pepcid. Plan dated 06/06/2022. We added steroids, Benadryl, and Pepcid. We will switch her Versed to propofol. The FiO2 was dropped down to 30%. We will convert the Versed to propofol. The patient's getting saline at 130 mL an hour. Chest x-ray will be done. We will also check a pro-calcitonin level, and an N-terminal proBNP. I've asked the nurses in the intensive care unit, to make a bed for this patient. Additional recommendations and suggestions are forthcoming. Time with Patient: Greater than 30
[2022-06-06] MEDS: fentaNYL (PF) 50 MCG/ML 2 ML AMP IVP PRN (11:06)
[2022-06-06 14:41] LABS: Glucose,Whole Blood 151 mg/dL (70-110)
[2022-06-06] MEDS ORDERED: HYDROmorphone 2 MG/ML 1 ML SYRINGE IVP PRN (18:33)
[2022-06-06 19:58] LABS: Glucose,Whole Blood 165 mg/dL (70-110)
[2022-06-06] MEDS: HYDROmorphone 1 MG/ML 1 ML SYRINGE IVP PRN (21:17)
[2022-06-06] MEDS: CHLORHEXIDINE GLUCONATE 15 ML CUP MUCOUS MEM SCH (21:21)
[2022-06-06 23:31] LABS: Glucose,Whole Blood 149 mg/dL (70-110)
[2022-06-07] MEDS: ACETAMINOPHEN IV (For NPO) 1,000 MG in EMPTY BAG 1 BAG IVPB SCH ×2 (02:17→09:11)
[2022-06-07] MEDS: IPRATROPIUM-ALBUTEROL 3 ML NEB INHALATION SCH ×6 (03:14→22:58)
[2022-06-07] MEDS: HYDROmorphone 1 MG/ML 1 ML SYRINGE IVP PRN ×3 (04:14→20:50)
[2022-06-07 05:10] LABS: ABG HCO3 21 mmol/L (21-25); ABG Oxygen Saturation 96.5 % (94-97); ABG PCO2 34 mmHg (35-45); ABG PO2 76 mmHg (83-108); ABG TCO2 22 mmol/L (19-24); Allen Test Performed? Yes
[2022-06-07 06:08] LABS: Glucose,Whole Blood 129 mg/dL (70-110)
[2022-06-07] MEDS: methylPREDNISolone SOD SUCCI 40 MG/ML 1 ML VIAL IV SCH (06:23)
[2022-06-07] MEDS: diphenhydrAMINE 50 MG/ML 1 ML VIAL IVP SCH ×4 (06:23→23:42)
[2022-06-07] MEDS: FAMOTIDINE 20 MG/2 ML VIAL IV SCH ×2 (07:46→20:50)
[2022-06-07] MEDS: CHLORHEXIDINE GLUCONATE 15 ML CUP MUCOUS MEM SCH ×2 (07:48→20:50)
--- NOTE | 2022-06-07 07:50 | XR ---
EXAMINATION TYPE: XR chest 1V DATE OF EXAM: 06/07/2022 COMPARISON: 06/06/2022 HISTORY: 77-year-old female angioedema TECHNIQUE: Single frontal view of the chest is obtained. FINDINGS: ETT tube is satisfactory. NG tube sidehole is at the GE junction level. Consider further a dvancement by 4 to 5 cm so that the side hole enters the stomach. Heart is borderline in size. Mild i nterstitial prominence. Mild hyperinflation. Patchy retrocardiac opacity. No sizable effusion. IMPRESSION: 1. ET tube is slightly short. The sidehole is at the GE junction level. Advance by 4 to 5 cm. 2. Otherwise, similar exam with borderline heart size, suspected background COPD. Possible mild pulmo nary vascular congestion. 3. Ongoing patchy retrocardiac atelectasis versus infiltrate.
[2022-06-07] MEDS: SODIUM CHLORIDE 0.9% 1,000 ML IV SCH ×2 (07:54→16:38)
[2022-06-07 09:46] LABS: Basophils % (A) 0 %; Eosinophils % (A) 0 %; HCT 38.4 % (34.0-46.0); HGB 12.6 gm/dL (11.4-16.0); Hypochromasia Slight; Lymphocytes # (A) 1.2 k/uL (1.0-4.8); Lymphocytes % (A) 10 %; MCH 32.6 pg (25.0-35.0); MCHC 32.8 g/dL (31.0-37.0); MCV 99.4 fL (80.0-100.0); Mean Platelet Volume 8.6; Monocytes # (A) 0.8 k/uL (0-1.0); Monocytes % (A) 6 %; Neutrophils # (A) 9.6 k/uL (1.3-7.7); Neutrophils % (A) 82 %; Platelet Count 213 k/uL (150-450); RBC 3.87 m/uL (3.80-5.40); RDW 13.5 % (11.5-15.5); WBC 11.7 k/uL (3.8-10.6)
[2022-06-07 09:51] LABS: African American GFR (CKD) >90 (>60 ml/min/1.73 sqM); Anion Gap 7 mmol/L; Blood Urea Nitrogen 19 mg/dL (7-17); Calcium 8.4 mg/dL (8.4-10.2); Carbon Dioxide 17 mmol/L (22-30); Chloride 113 mmol/L (98-107); Glucose 123 mg/dL (74-99); Magnesium 2.2 mg/dL (1.6-2.3); Non-African American GFR(CKD) 88 (>60 ml/min/1.73 sqM); Sodium 137 mmol/L (137-145)
[2022-06-07 09:54] LABS: Potassium 4.4 mmol/L (3.5-5.1)
[2022-06-07 11:20] LABS: Glucose,Whole Blood 139 mg/dL (70-110)
[2022-06-07] MEDS: DEXAMETHASONE SOD PHOSPHATE 10 MG/ML 1 ML VIAL IVP SCH ×3 (11:34→23:42)
--- NOTE | 2022-06-07 12:44 | P.PN ---
Subjective Progress Note Date: 06/07/22 Principal diagnosis: Angioedema. Pulmonary/critical care consult dated 06/05/2022. 77-year-old female who came to the emergency department on June 05, throat and tongue swelling. It started this morning at about 5:00, and he got progressively worse, and for that reason, she came in to be evaluated. She was thought to have a case of angioedema, caused by lisinopril. Her airways became more more compromise, and according to the ER physician, anesthesia was called, and the patient was intubated. She is now in the emergency room, trauma room 1, on the mechanical ventilator. Her home medications include only Advil, and lisinopril. Her past medical history includes hypertension, kidney stones, and a lung mass, that was biopsied, and was found to be benign. She is a current every day smoker. She does not use illicit drugs or alcohol. CBC is normal. Blood gases show pO2 of greater than 400, pCO2 of 51, and pH is 7.29. Sodium 136, potassium 4.5, chlorides 101, CO2 28, anion gap 7, BUN 18, creatinine 0.73. Chest x-ray shows proper placement of the endotracheal tube, and NG tube and needs to be advanced, and some patchy atelectasis versus infiltrate at the right lung base. Progress note dated 06/06/2022. The patient is again seen in trauma room #1. She was seen in consultation yesterday. She had angioedema, that was caused by lisinopril. She came in with throat and tongue swelling, and required intubation. She remains on the mechanical ventilator. Settings include the volume assist control, rate 18, tidal volume 450, FiO2 30%, and PEEP of 5. Blood gases show a PaO2 of 333, pCO2 38, and a pH is 7.35. Blood gases were done presumably on 40%. The patient's getting saline at 130 mL an hour, and a Versed drip at 15 mg an hour. Labs today only include a blood gas. We recommended steroids, Benadryl, Pepcid, and propofol, and none of that has been done. We did drop her FiO2 down to 30%. We did order a chest x-ray. Chest x-ray did reveal bilateral infiltrates. Progress note dated 06/07/2022. 77-year-old female again seen in room 266. The patient came in with respiratory compromise secondary to angioedema, caused by lisinopril. He was intubated in the emergency department. Currently, the patient remains in the ICU, on the ve ntilator. Her ventilator settings include the volume assist control, rate 18, tidal volume 450, FiO2 30%, and PEEP of 5. Blood gases show pO2 of 76, pCO2 of 34, and a pH is 7.4. She's getting saline at 130 mL an hour, propofol at 40 mcg/kg/m. Today, we will do a daily interruption of sedation, with a spontaneous breathing trial, with pressure support of 5, and CPAP of 5. White count 11.7, hemoglobin hematocrit and platelet count all normal. Sodium 137, potassium 4.4, chlorides 113, CO2 17, anion gap 7, BUN 19, creatinine 0.6. Chest x-ray is reviewed. Objective - Vital Signs Vital signs: Vital Signs Temp 97.8 F 06/07/22 07:00 Pulse 80 06/07/22 12:00 Resp 21 06/07/22 12:00 BP 161/81 06/07/22 12:00 Pulse Ox 96 06/07/22 12:00 FiO2 30 06/07/22 11:30 Intake & Output 06/06/22 06/07/22 06/07/22 18:59 06:59 18:59 Intake Total 217.860 6350.016 798.208 Output Total 340 480 180 Balance 365.442 2271.016 618.208 Weight 57.153 kg 63.6 kg Intake: IV 520 1690 650 Sodium Chloride 0.9% 1, 520 1690 650 000 ml @ 130 mls/hr IV . [id number] [facility]O Rx#:[id number] Intake, IV Titration 120.677 242.016 148.208 Amount ACETAMINOPHEN IV (For NPO 100 ) 1,000 mg In Empty Bag 1 bag @ 400 mls/hr IVPB Q8H [facility] Rx#:[id number] Midazolam HCl 50 mg In 50.75 Sodium Chloride 0.9% 40 ml @ 1 MG/HR 1 mls/hr IV .Q24H [facility] Rx#:[id number] propofoL 1,000 mg In 69.927 242.016 48.208 Empty Bag 1 bag @ 15 MCG/ KG/MIN 5.144 mls/hr IV . [id number] [facility] Rx#:[id number] Output: Urine 340 480 180 Other: Voiding Method Indwelling Catheter Indwelling Catheter Indwelling Catheter - Exam No acute distress, sedated, with an orally placed endotracheal tube. HEENT examination is grossly unremarkable. Neck supple. Full range of motion. No adenopathy thyromegaly or neck vein distention. Cardiovascular examination reveals regular rhythm rate. S1-S2 normal. No S3 or S4. No discernible murmur noted. Heart rate 80 bpm. Lungs reveal scattered bilateral rhonchi. Breath sounds are coarse. No wheezes or crackles. Breath sounds are equal bilaterally. Saturations are 96 %. Abdomen soft bowel sounds are heard. No masses or tenderness. Extremities are intact. No cyanosis clubbing or edema. Skin is without rash or lesion. Neurologic examination cannot be evaluated as the patient's currently sedated. - Labs CBC & Chem 7: 06/07/22 09:20 06/07/22 09:20 Labs: Abnormal Lab Results - Last 24 Hours (Table) 06/06/22 06/06/22 06/06/22 Range/Units 14:38 19:57 23:30 WBC (3.8-10.6) k/uL Neutrophils # (1.3-7.7) k/uL ABG pCO2 (35-45) mmHg ABG pO2 (83-108) mmHg Chloride (98-107) mmol/L Carbon Dioxide (22-30) mmol/L BUN (7-17) mg/dL Glucose (74-99) mg/dL POC Glucose (mg/dL) 151 H 165 H 149 H (70-110) mg/dL 06/07/22 06/07/22 06/07/22 Range/Units 05:07 06:07 09:20 WBC 11.7 H (3.8-10.6) k/uL Neutrophils # 9.6 H (1.3-7.7) k/uL ABG pCO2 34 L (35-45) mmHg ABG pO2 76 L (83-108) mmHg Chloride (98-107) mmol/L Carbon Dioxide (22-30) mmol/L BUN (7-17) mg/dL Glucose (74-99) mg/dL POC Glucose (mg/dL) 129 H (70-110) mg/dL 06/07/22 06/07/22 Range/Units 09:20 11:19 WBC (3.8-10.6) k/uL Neutrophils # (1.3-7.7) k/uL ABG pCO2 (35-45) mmHg ABG pO2 (83-108) mmHg Chloride 113 H (98-107) mmol/L Carbon Dioxide 17 L (22-30) mmol/L BUN 19 H (7-17) mg/dL Glucose 123 H (74-99) mg/dL POC Glucose (mg/dL) 139 H (70-110) mg/dL Microbiology - Last 24 Hours (Table) 06/06/22 01:00 Gram Stain - Preliminary Sputum Sputum Culture - Preliminary Assessment and Plan Assessment: Severe angioedema, with airway compromise, requiring intubation and mechanical v entilation on 06/05/2022. Possible aspiration pneumonia versus fluid overload. History of hypertension. History of kidney stones. History of a lung mass, status post fine-needle aspiration, which revealed a benign lesion. Plan: Plan dated 06/05/2022. The patient is resting comfortably on the ventilator, down in the emergency room, trauma room 1. The patient's received Solu-Medrol, as well as Benadryl, Pepcid, and tranexamic acid. The patient was intubated in the emergency de partment, by ER, and anesthesia. The patient is currently on a med past lambda drip. We are waiting for a bed to open up in the intensive care unit. Additional recommendations and suggestions are forthcoming. The patient should be switched to propofol. I also recommended a fentanyl drip for additional sedation if not controlled by propofol. The patient should also continue on some corticosteroids, as well as Benadryl, and Pepcid. Plan dated 06/06/2022. We added steroids, Benadryl, and Pepcid. We will switch her Versed to propofol. The FiO2 was dropped down to 30%. We will convert the Versed to propofol. The patient's getting saline at 130 mL an hour. Chest x-ray will be done. We will also check a pro-calcitonin level, and an N-terminal proBNP. I've asked the nurses in the intensive care unit, to make a bed for this patient. Additional recommendations and suggestions are forthcoming. Plan dated 06/07/2022. The patient was given a daily interruption of sedation and a spontaneous breathing trial. Weaning parameters are excellent, but the patient did not have a cuff leak. I told the nurses and respiratory to move the patient on pressure support/CPAP, and change Solu-Medrol to Decadron, 6 mg every 6 hours. Hopefully, later today, the patient will have a cuff leak, and we will be able to extubate the patient. If not, we will wait till tomorrow. Labs, x-rays, and medications are reviewed. Prognosis is certainly guarded. Time with Patient: Greater than 30
[2022-06-07] MEDS: amLODIPine 5 MG TAB PO SCH (14:06)
[2022-06-07 16:43] LABS: Glucose,Whole Blood 123 mg/dL (70-110)
[2022-06-07 23:41] LABS: Glucose,Whole Blood 108 mg/dL (70-110)
[2022-06-08] MEDS: HYDROmorphone 1 MG/ML 1 ML SYRINGE IVP PRN ×4 (00:34→15:06)
[2022-06-08] MEDS: IPRATROPIUM-ALBUTEROL 3 ML NEB INHALATION SCH ×5 (03:04→19:53)
--- NOTE | 2022-06-08 03:46 | PN ---
PROGRESS NOTE DATE OF SERVICE: 06/07/2022 SUBJECTIVE: This 77-year-old woman was admitted with acute angioedema secondary to taking lisinopril, also is on acute hypoxic respiratory failure. Patient is on mechanical ventilation. Vent settings are noted. The patient also had possible aspiration pneumonia. Dr. Simpson is following the patient closely. The patient is also on steroids as well. PAST MEDICAL HISTORY: Reviewed. REVIEW OF SYSTEMS: Could not be taken. The patient is on mechanical ventilation, sedated. CURRENT MEDICATIONS: Reviewed include Decadron. Dose and rest of the medications noted. PHYSICAL EXAM: VITAL SIGNS: Pulse is 75, blood pressure 143/80, respirations 18. Vent settings are noted. HEENT: Conjunctivae normal. CARDIOVASCULAR: S1, S2 regular. RESPIRATIONS: Bilateral scattered rhonchi and crackles. ABDOMEN: Soft, nontender. NERVOUS SYSTEM: Sedated. LABS: Reviewed. Chest x-ray reviewed personally. ASSESSMENT: 1. Acute hypoxic respiratory failure secondary to angioedema secondary to lisinopril. 2. Possible aspiration pneumonia. 3. Hypertension. 4. Multiple medical issues. RECOMMENDATIONS: I recommend to continue current management and to continue with the steroids. Continue with the bronchodilators. Continue with the rest of medications. Closely follow with Dr. Simpson. Prognosis guarded. Discussed with family. Further recommendations to follow. MMODL / IJN: [id number] /
[2022-06-08] MEDS: SODIUM CHLORIDE 0.9% 1,000 ML IV SCH ×2 (04:21→16:31)
[2022-06-08 05:11] LABS: Glucose,Whole Blood 114 mg/dL (70-110)
[2022-06-08 05:12] LABS: ABG Base Excess -6.2 mmol/L; ABG HCO3 19 mmol/L (21-25); ABG PCO2 35 mmHg (35-45); ABG PH 7.36 (7.35-7.45); ABG PO2 87 mmHg (83-108); ABG TCO2 20 mmol/L (19-24)
[2022-06-08 05:26] LABS: Allen Test Performed? no
[2022-06-08 06:33] LABS: Basophils % (A) 0 %; Eosinophils % (A) 0 %; HCT 27.1 % (34.0-46.0); Hypochromasia Slight; Lymphocytes # (A) 0.6 k/uL (1.0-4.8); Lymphocytes % (A) 7 %; MCH 35.5 pg (25.0-35.0); MCV 98.6 fL (80.0-100.0); Mean Platelet Volume 8.8; Monocytes # (A) 0.4 k/uL (0-1.0); Monocytes % (A) 5 %; Neutrophils # (A) 7.5 k/uL (1.3-7.7); Neutrophils % (A) 86 %; Platelet Count 206 k/uL (150-450); RBC 2.75 m/uL (3.80-5.40); WBC 8.7 k/uL (3.8-10.6)
[2022-06-08] MEDS: diphenhydrAMINE 50 MG/ML 1 ML VIAL IVP SCH ×4 (06:39→23:25)
[2022-06-08] MEDS: DEXAMETHASONE SOD PHOSPHATE 10 MG/ML 1 ML VIAL IVP SCH ×4 (06:40→23:25)
[2022-06-08 06:43] LABS: African American GFR (CKD) >90 (>60 ml/min/1.73 sqM); Anion Gap 4 mmol/L; Blood Urea Nitrogen 20 mg/dL (7-17); Carbon Dioxide 15 mmol/L (22-30); Chloride 121 mmol/L (98-107); Glucose 87 mg/dL (74-99); Non-African American GFR(CKD) >90 (>60 ml/min/1.73 sqM); Potassium 2.9 mmol/L (3.5-5.1); Sodium 140 mmol/L (137-145)
[2022-06-08 06:46] LABS: Calcium 5.8 mg/dL (8.4-10.2)
[2022-06-08] MEDS ORDERED: Potassium Replacement Protocol 1 EACH MISC MISCELLANE PRN ×2 (06:46→13:40)
[2022-06-08 06:47] LABS: HGB 9.8 gm/dL (11.4-16.0)
[2022-06-08] MEDS: POTASSIUM CHLORIDE 10 MEQ in WATER FOR INJECTION 1 100ML.BAG IVPB SCH ×4 (07:10→11:55)
--- NOTE | 2022-06-08 08:19 | XR ---
EXAMINATION TYPE: XR chest 1V portable DATE OF EXAM: 06/08/2022 Comparison: 06/07/2022 Clinical History: 77-year-old female ET Placement Findings: ET tube satisfactory. NG tube courses below the diaphragm. Heart upper limits of normal in size. Mild hyperinflation. Slight worsening and retrocardiac and left basilar opacity. Impression: Worsening retrocardiac and left basilar atelectasis and/or consolidation.
[2022-06-08] MEDS: amLODIPine 5 MG TAB PO SCH (09:23)
[2022-06-08] MEDS: CHLORHEXIDINE GLUCONATE 15 ML CUP MUCOUS MEM SCH ×2 (09:23→20:49)
[2022-06-08] MEDS: FAMOTIDINE 20 MG/2 ML VIAL IV SCH ×2 (09:23→20:50)
[2022-06-08 10:31] LABS: ALT 13 U/L (4-34); AST 14 U/L (14-36); Alkaline Phosphatase 49 U/L (38-126); Total Bilirubin <0.1 mg/dL (0.2-1.3); Total Protein 3.7 g/dL (6.3-8.2)
[2022-06-08] MEDS: PIPERACILLIN-TAZOBACTAM 3.375 GM in SODIUM CHLORIDE 0.9% 100 ML IVPB SCH ×2 (10:53→18:50)
[2022-06-08 11:15] LABS: Glucose,Whole Blood 104 mg/dL (70-110)
[2022-06-08 12:41] LABS: Glucose,Whole Blood 101 mg/dL (70-110)
--- NOTE | 2022-06-08 13:01 | P.PN ---
Subjective Progress Note Date: 06/08/22 Principal diagnosis: Angioedema. Pulmonary/critical care consult dated 06/05/2022. 77-year-old female who came to the emergency department on June 05, throat and tongue swelling. It started this morning at about 5:00, and he got progressively worse, and for that reason, she came in to be evaluated. She was thought to have a case of angioedema, caused by lisinopril. Her airways became more more compromise, and according to the ER physician, anesthesia was called, and the patient was intubated. She is now in the emergency room, trauma room 1, on the mechanical ventilator. Her home medications include only Advil, and lisinopril. Her past medical history includes hypertension, kidney stones, and a lung mass, that was biopsied, and was found to be benign. She is a current every day smoker. She does not use illicit drugs or alcohol. CBC is normal. Blood gases show pO2 of greater than 400, pCO2 of 51, and pH is 7.29. Sodium 136, potassium 4.5, chlorides 101, CO2 28, anion gap 7, BUN 18, creatinine 0.73. Chest x-ray shows proper placement of the endotracheal tube, and NG tube and needs to be advanced, and some patchy atelectasis versus infiltrate at the right lung base. Progress note dated 06/06/2022. The patient is again seen in trauma room #1. She was seen in consultation yesterday. She had angioedema, that was caused by lisinopril. She came in with throat and tongue swelling, and required intubation. She remains on the mechanical ventilator. Settings include the volume assist control, rate 18, tidal volume 450, FiO2 30%, and PEEP of 5. Blood gases show a PaO2 of 333, pCO2 38, and a pH is 7.35. Blood gases were done presumably on 40%. The patient's getting saline at 130 mL an hour, and a Versed drip at 15 mg an hour. Labs today only include a blood gas. We recommended steroids, Benadryl, Pepcid, and propofol, and none of that has been done. We did drop her FiO2 down to 30%. We did order a chest x-ray. Chest x-ray did reveal bilateral infiltrates. Progress note dated 06/07/2022. 77-year-old female again seen in room 266. The patient came in with respiratory compromise secondary to angioedema, caused by lisinopril. He was intubated in the emergency department. Currently, the patient remains in the ICU, on the ve ntilator. Her ventilator settings include the volume assist control, rate 18, tidal volume 450, FiO2 30%, and PEEP of 5. Blood gases show pO2 of 76, pCO2 of 34, and a pH is 7.4. She's getting saline at 130 mL an hour, propofol at 40 mcg/kg/m. Today, we will do a daily interruption of sedation, with a spontaneous breathing trial, with pressure support of 5, and CPAP of 5. White count 11.7, hemoglobin hematocrit and platelet count all normal. Sodium 137, potassium 4.4, chlorides 113, CO2 17, anion gap 7, BUN 19, creatinine 0.6. Chest x-ray is reviewed. Progress note dated 06/08/2022. 77-year-old female seen in the intensive care unit, room 266. The patient was admitted with a diagnosis of acute respiratory failure secondary to angioedema, which was caused by lisinopril. She was intubated in the emergency department. She remains on the mechanical ventilator. She is on volume assist control, rate 18, tidal volume 450, FiO2 30%, and PEEP of 5. Blood gases show a PaO2 of 87, pCO2 35, and pH is 7.35. The patient's on propofol at 25 mcg/kg/m, saline at 75 mL an hour. No tube feeds. Unfortunately, the patient does well on pressure support and CPAP, but again today, she did not have a cuff leak. She was placed on Decadron for the upper airway swelling. Sputum showed evidence of Moraxella catarrhalis. I placed her on Zosyn. White count 8.7, hemoglobin 9.8, hematocrit 27.1, and platelet count 206,000. Sodium 140, potassium 2.9, chlorides 121, CO2 15, anion gap 4, BUN 20, and creatinine 0.5. Calcium 5.8. A ionized calcium was ordered. The albumin was 2. Chest x-ray shows a right basilar infiltrate as well as infiltrate and consolidation in the retrocardiac area. Objective - Vital Signs Vital signs: Vital Signs Temp 98.3 F 06/08/22 12:00 Pulse 75 06/08/22 12:00 Resp 28 H 06/08/22 12:00 BP 183/81 06/08/22 12:00 Pulse Ox 92 L 06/08/22 12:00 FiO2 30 06/08/22 12:00 Intake & Output 06/07/22 06/08/22 06/08/22 18:59 06:59 18:59 Intake Total 4788.344 2713.341 905.530 Output Total 1045 650 255 Balance 390.000 385.341 650.530 Weight 66.2 kg Intake: IV 1175 900 825 Potassium Chloride 10 meq 400 In Water For Injection 1 100ml.bag @ 100 mls/hr IVPB Q1HR [facility] Rx#: [id number] Sodium Chloride 0.9% 1, 1175 900 425 000 ml @ 75 mls/hr IV . [id number] [facility] Rx#:[id number] Intake, IV Titration 200.000 135.341 80.530 Amount ACETAMINOPHEN IV (For NPO 100 ) 1,000 mg In Empty Bag 1 bag @ 400 mls/hr IVPB Q8H [facility] Rx#:[id number] propofoL 1,000 mg In 100.000 135.341 80.530 Empty Bag 1 bag @ 15 MCG/ KG/MIN 5.144 mls/hr IV . [id number] [facility] Rx#:[id number] Other 60 Output: Gastric Drainage 200 50 Urine 1045 450 205 Other: Voiding Method Indwelling Catheter Indwelling Catheter Indwelling Catheter - Exam No acute distress, sedated, with an orally placed endotracheal tube. HEENT examination is grossly unremarkable. Neck supple. Full range of motion. No adenopathy thyromegaly or neck vein distention. Cardiovascular examination reveals regular rhythm rate. S1-S2 normal. No S3 or S4. No discernible murmur noted. Heart rate 75 bpm. Lungs reveal scattered bilateral rhonchi. Breath sounds are coarse. No wheezes or crackles. Breath sounds are equal bilaterally. Saturations are 92 %. Abdomen soft bowel sounds are heard. No masses or tenderness. Extremities are intact. No cyanosis clubbing or edema. Skin is without rash or lesion. Neurologic examination cannot be evaluated as the patient's currently sedated. - Labs CBC & Chem 7: 06/08/22 06:25 06/08/22 06:25 Labs: Abnormal Lab Results - Last 24 Hours (Table) 06/07/22 06/08/2206/08/22 Range/Units 16:41 05:09 05:10 RBC (3.80-5.40) m/uL Hgb (11.4-16.0) gm/dL Hct (34.0-46.0) % MCH (25.0-35.0) pg Lymphocytes # (1.0-4.8) k/uL ABG HCO3 19 L (21-25) mmol/L Potassium (3.5-5.1) mmol/L Chloride (98-107) mmol/L Carbon Dioxide (22-30) mmol/L BUN (7-17) mg/dL Creatinine (0.52-1.04) mg/dL POC Glucose (mg/dL) 123 H 114 H (70-110) mg/dL Calcium (8.4-10.2) mg/dL Total Bilirubin (0.2-1.3) mg/dL Total Protein (6.3-8.2) g/dL Albumin (3.5-5.0) g/dL 06/08/22 06/08/22 Range/Units 06:25 06:25 RBC 2.75 L (3.80-5.40) m/uL Hgb 9.8 L D (11.4-16.0) gm/dL Hct 27.1 L (34.0-46.0) % MCH 35.5 H (25.0-35.0) pg Lymphocytes # 0.6 L (1.0-4.8) k/uL ABG HCO3 (21-25) mmol/L Potassium 2.9 L (3.5-5.1) mmol/L Chloride 121 H (98-107) mmol/L Carbon Dioxide 15 L (22-30) mmol/L BUN 20 H (7-17) mg/dL Creatinine 0.50 L (0.52-1.04) mg/dL POC Glucose (mg/dL) (70-110) mg/dL Calcium 5.8 L* (8.4-10.2) mg/dL Total Bilirubin <0.1 L (0.2-1.3) mg/dL Total Protein 3.7 L (6.3-8.2) g/dL Albumin 2.0 L (3.5-5.0) g/dL Microbiology - Last 24 Hours (Table) 06/06/22 01:00 Gram Stain - Final Sputum Sputum Culture - Final Moraxella(branhamella) catarra Assessment and Plan Assessment: Severe angioedema, with airway compromise, requiring intubation and mechanical ventilation on 06/05/2022. Possible aspiration pneumonia versus fluid overload. Moraxella catarrhalis tracheobronchitis/bronchopneumonia. History of hypertension. History of kidney stones. History of a lung mass, status post fine-needle aspiration, which revealed a benign lesion. Plan: Plan dated 06/05/2022. The patient is resting comfortably on the ventilator, down in the emergency room, trauma room 1. The patient's received Solu-Medrol, as well as Benadryl, Pepcid, and tranexamic acid. The patient was intubated in the emergency department, by ER, and anesthesia. The patient is currently on a med past lambda drip. We are waiting for a bed to open up in the intensive care unit. Additional recommendations and suggestions are forthcoming. The patient should be switched to propofol. I also recommended a fentanyl drip for additional sedation if not controlled by propofol. The patient should also continue on john e corticosteroids, as well as Benadryl, and Pepcid. Plan dated 06/06/2022. We added steroids, Benadryl, and Pepcid. We will switch her Versed to propofol. The FiO2 was dropped down to 30%. We will convert the Versed to propofol. The patient's getting saline at 130 mL an hour. Chest x-ray will be done. We will also check a pro-calcitonin level, and an N-terminal proBNP. I've asked the nurses in the intensive care unit, to make a bed for this patient. Additional recommendations and suggestions are forthcoming. Plan dated 06/07/2022. The patient was given a daily interruption of sedation and a spontaneous breathing trial. Weaning parameters are excellent, but the patient did not have a cuff leak. I told the nurses and respiratory to move the patient on pressure support/CPAP, and change Solu-Medrol to Decadron, 6 mg every 6 hours. Hopefully, later today, the patient will have a cuff leak, and we will be able to extubate the patient. If not, we will wait till tomorrow. Labs, x-rays, and medications are reviewed. Prognosis is certainly guarded. Plan dated 06/08/2022. Patient is again given a daily interruption of sedation and a spontaneous breathing trial. Weaning parameters are excellent. Unfortunately, she does not have a cuff leak. Her negative inspiratory force was -23, vital capacity 905, rapid shallow breathing index was 77, respiratory rate was 26, but again no cuff leak. The patient was started on Zosyn for her Moraxella catarrhalis tracheobronchitis/bronchopneumonia. Chest x-ray shows some retrocardiac infiltrates, and infiltrates in the right lower lobe as well. We will start her on tube feedings. Time with Patient: Greater than 30
[2022-06-08] MEDS ORDERED: Magnesium Replacement Protocol 1 EACH MISC MISCELLANE PRN (13:40)
[2022-06-08 15:28] LABS: African American GFR (CKD) >90 (>60 ml/min/1.73 sqM); Anion Gap 4 mmol/L; Blood Urea Nitrogen 29 mg/dL (7-17); Calcium 8.2 mg/dL (8.4-10.2); Carbon Dioxide 19 mmol/L (22-30); Chloride 116 mmol/L (98-107); Glucose 105 mg/dL (74-99); Non-African American GFR(CKD) 86 (>60 ml/min/1.73 sqM); Sodium 139 mmol/L (137-145)
[2022-06-08 15:32] LABS: Potassium 4.7 mmol/L (3.5-5.1)
[2022-06-08] MEDS ORDERED: CISATRACURIUM 2 MG/ML 5 ML VIAL IV ONE (15:54)
[2022-06-08] MEDS ORDERED: CALCIUM GLUCONATE IN NACL 1 GM in SALINE 1 100ML.BAG IVPB ONE (16:43)
[2022-06-08 17:54] LABS: Glucose,Whole Blood 110 mg/dL (70-110)
--- NOTE | 2022-06-08 22:32 | PCN ---
PROCEDURE NOTE PULMONARY/CRITICAL CARE PROCEDURE NOTE: PROCEDURES PERFORMED: Bronchoscopy, airway examination, therapeutic lavage, bronchoalveolar lavage, right lower lobe. PREOPERATIVE DIAGNOSIS: Pneumonia. POSTOPERATIVE DIAGNOSIS: Pneumonia. DESCRIPTION OF PROCEDURE: The patient was on the mechanical ventilator. She was receiving 100% oxygen. There was informed consent and universal timeout. The patient was adequately sedated and paralyzed with 10 mg of Nimbex prior to the procedure. The bronchoscope was inserted through the bronchoscope adapter connected to the endotracheal tube. The bronchoscope was pushed through the endotracheal tube down into the trachea. The endotracheal tube was noted to be above the tracheal rubina. There were thick secretions noted above the tracheal rubina, both in the right mainstem and left mainstem. Next, after topicalization, the bronchoscope was pushed through the left mainstem. The left upper lobe proper and its 2 segments, the lingula and its 2 segments, and the left lower lobe and its 4 segments were evaluated. There were thick purulent secretions noted throughout. They were suctioned. There was no endobronchial mass or tumor. The mucosa was a bit friable. On the right side, the secretions were more significant. They were especially significant in the right upper lobe and its 3 segments, less so in the right middle lobe, but mostly in the right lower lobe. The middle lobe and its 2 segments and the right lower lobe and its 5 segments were all evaluated. The thick secretions were noted particularly as I mentioned in the right lower lobe. The bronchoscope was wedged into the right lower lobe, we did a formal BAL. About 45 mL of purulent fluid was recovered. Next, with saline, the segments and lobes were cleaned. The patient tolerated the procedure well. She was stable throughout the procedure. Also on the right side, there were no masses or tumors and the bronchial mucosa was erythematous and hyperemic. The bronchoscope was withdrawn. The fluid will be sent for cytology, and microbiology as well as cell count and differential. The patient tolerated the procedure well. The bronchoscope was withdrawn. There was no immediate complication. MMODL / IJN: [id number] /
[2022-06-08 23:21] LABS: Glucose,Whole Blood 120 mg/dL (70-110)
[2022-06-08 23:28] LABS: Appearance,BF Cloudy
[2022-06-09] MEDS: IPRATROPIUM-ALBUTEROL 3 ML NEB INHALATION SCH ×6 (00:23→20:29)
[2022-06-09] MEDS: HYDROmorphone 1 MG/ML 1 ML SYRINGE IVP PRN ×2 (00:39→04:49)
--- NOTE | 2022-06-09 01:17 | PN ---
PROGRESS NOTE DATE OF SERVICE: 06/08/2022 SUBJECTIVE: This 77-year-old female admitted with VALERIA inhibitor-induced acute angioedema as well as acute respiratory failure, also had possible aspiration pneumonia also. The cultures are showing Moraxella catarrhalis. The patient is on mechanical ventilation. Dr. Simpson is following the patient closely at this time. Past medical history and review of systems not taken because the patient is mechanically sedated. CURRENT MEDICATIONS: Reviewed include Zosyn, dose and rest of medications noted. PHYSICAL EXAMINATION: VITAL SIGNS: Pulse is 79, blood pressure 158/70, and respirations 18. HEENT: Conjunctivae normal. NECK: No JVD. CARDIOVASCULAR: S1, S2. RESPIRATION: Bilateral scattered rhonchi and crackles. ABDOMEN: Soft, nontender. LEGS: No leg edema. NERVOUS SYSTEM: The patient is sedated. LABS: Reviewed. Chest x-ray reviewed personally. Potassium 2.9. ASSESSMENT: 1. Acute hypoxic respiratory failure secondary to angioedema secondary to lisinopril. 2. Possible aspiration pneumonia, Moraxella catarrhalis. 3. Hypertension. 4. Multiple medical issues. RECOMMENDATIONS: 1. Recommended to continue current management and continue with empiric antibiotics. Cultures are noted. 2. Otherwise potassium supplementation. 3. Repeat labs. 4. Check magnesium. Guarded prognosis because of multiple complex medical issues. Further recommendations to follow. We will check a calcium also. MMODL / IJN: [id number] /
[2022-06-09] MEDS: PIPERACILLIN-TAZOBACTAM 3.375 GM in SODIUM CHLORIDE 0.9% 100 ML IVPB SCH ×2 (02:39→10:57)
[2022-06-09 06:05] LABS: ABG Base Excess -5.5 mmol/L; ABG HCO3 20 mmol/L (21-25); ABG PCO2 35 mmHg (35-45); ABG PH 7.36 (7.35-7.45); ABG PO2 79 mmHg (83-108); ABG TCO2 21 mmol/L (19-24); Allen Test Performed? Yes
[2022-06-09 06:13] LABS: Glucose,Whole Blood 120 mg/dL (70-110)
[2022-06-09] MEDS: DEXAMETHASONE SOD PHOSPHATE 10 MG/ML 1 ML VIAL IVP SCH ×3 (06:25→18:25)
[2022-06-09] MEDS: diphenhydrAMINE 50 MG/ML 1 ML VIAL IVP SCH (06:25)
--- NOTE | 2022-06-09 07:24 | XR ---
EXAMINATION TYPE: XR chest 1V portable DATE OF EXAM: 06/09/2022 COMPARISON: 06/08/2022 HISTORY: SOB, Follow Up FINDINGS: Indwelling tubes and catheters are unchanged. Patchy infiltrate right lower lobe has increased in the interval. There is also increased density lef t lower lobe which may reflect additional infiltrate or atelectasis. Stable appearance of the cardio-mediastinal structures at this time. IMPRESSION: 1. Patchy infiltrate right lower lobe has increased in the interval. There is also increased density left lower lobe which may reflect additional infiltrate or atelectasis.
[2022-06-09 08:31] LABS: Basophils % (A) 0 %; Eosinophils % (A) 0 %; HCT 35.4 % (34.0-46.0); HGB 11.4 gm/dL (11.4-16.0); Hypochromasia Moderate; Lymphocytes # (A) 0.6 k/uL (1.0-4.8); Lymphocytes % (A) 5 %; MCH 32.3 pg (25.0-35.0); MCHC 32.3 g/dL (31.0-37.0); MCV 99.9 fL (80.0-100.0); Mean Platelet Volume 8.1; Monocytes # (A) 0.4 k/uL (0-1.0); Monocytes % (A) 4 %; Neutrophils # (A) 9.9 k/uL (1.3-7.7); Neutrophils % (A) 89 %; Platelet Count 255 k/uL (150-450); RBC 3.55 m/uL (3.80-5.40); RDW 13.9 % (11.5-15.5); WBC 11.1 k/uL (3.8-10.6)
[2022-06-09 08:53] LABS: ALT 17 U/L (4-34); AST 15 U/L (14-36); African American GFR (CKD) >90 (>60 ml/min/1.73 sqM); Albumin 2.7 g/dL (3.5-5.0); Alkaline Phosphatase 64 U/L (38-126); Anion Gap 6 mmol/L; Blood Urea Nitrogen 32 mg/dL (7-17); Calcium 8.2 mg/dL (8.4-10.2); Carbon Dioxide 18 mmol/L (22-30); Chloride 114 mmol/L (98-107); Glucose 125 mg/dL (74-99); Magnesium 2.3 mg/dL (1.6-2.3); Non-African American GFR(CKD) 85 (>60 ml/min/1.73 sqM); Potassium 4.3 mmol/L (3.5-5.1); Sodium 138 mmol/L (137-145); Total Bilirubin 0.3 mg/dL (0.2-1.3); Total Protein 4.7 g/dL (6.3-8.2)
[2022-06-09] MEDS: CHLORHEXIDINE GLUCONATE 15 ML CUP MUCOUS MEM SCH (09:59)
[2022-06-09] MEDS: FAMOTIDINE 20 MG/2 ML VIAL IV SCH ×2 (09:59→20:15)
[2022-06-09] MEDS: amLODIPine 10 MG TAB PO SCH (09:59)
[2022-06-09] MEDS ORDERED: diphenhydrAMINE 50 MG/ML 1 ML VIAL IVP PRN (12:14)
--- NOTE | 2022-06-09 12:15 | P.PN ---
Subjective Progress Note Date: 06/09/22 On 06/09/2022, the patient is awake and alert and she is off sedation. She is following simple commands. She has no lip swelling or tongue swelling of this morning. She is on a mechanical ventilator. She is intubated by a #7.582. She is on assist control mode with a rate of 18 with a tidal volume of 450 and FiO2 of 30% with a PEEP of 5. Blood gas showed a pH of 7.36 with a pCO2 of 35 and pO2 of 79. The patient is on Decadron 6 mg IV every 6 hours, Benadryl 25 mg every 6 hours, Pepcid 20 mg IV every 12 hours. She is covered with IV Zosyn as an empiric antibiotic coverage. The microbial culture from the sputum showed Moraxella catarrhalis. She is afebrile. She is hemodynamically stable. Noted the patient was taken lisinopril and the patient was taking nonsteroidal anti- and hematocrit medications on an outpatient basis. The patient has no other issues for now. Hemodynamically stable. Urine output is adequate. Blood work from today showed a white cell count of 11.1 with a hemoglobin of 11.4 and a platelet count of 255. The sodium is at 138, BUN is at 32 with a creatinine of 0.6 and a potassium level of 4.3. Objective - Vital Signs Vital signs: Vital Signs Temp 97.7 F 06/09/22 08:00 Pulse 60 06/09/22 11:29 Resp 23 06/09/22 11:00 BP 162/74 06/09/22 11:00 Pulse Ox 95 06/09/22 11:00 FiO2 30 06/09/22 11:12 Intake & Output 06/08/22 06/09/22 06/09/22 18:59 06:59 18:59 Intake Total 1970.518 3783.003 515.727 Output Total 590 570 280 Balance 1153.746 988.003 235.727 Weight 69 kg 69 kg Intake: IV 1535 1185 400 Calcium Gluconate in NaCl 100 1 gm In Saline 1 100ml. bag @ 100 mls/hr IVPB ONCE ONE Rx#:[id number] Piperacillin-Tazobactam 3 100 200 100 .375 gm In Sodium Chloride 0.9% 100 ml @ 25 mls/hr IVPB Q8H [facility] Rx#: [id number] Potassium Chloride 10 meq 400 In Water For Injection 1 100ml.bag @ 100 mls/hr IVPB Q1HR [facility] Rx#: [id number] Sodium Chloride 0.9% 1, 935 985 300 000 ml @ 75 mls/hr IV . [id number] [facility] Rx#:[id number] Intake, IV Titration 168.746 173.003 75.727 Amount propofoL 1,000 mg In 168.746 173.003 75.727 Empty Bag 1 bag @ 15 MCG/ KG/MIN 5.144 mls/hr IV . [id number] [facility] Rx#:[id number] Tube Feeding 10 110 10 Other 30 90 30 Output: Gastric Drainage 50 Urine 540 570 280 Other: Voiding Method Indwelling Catheter Indwelling Catheter Indwelling Catheter # Bowel Movements 1 - Exam No acute distress, sedated, with an orally placed endotracheal tube. HEENT examination is grossly unremarkable. Neck supple. Full range of motion. No adenopathy thyromegaly or neck vein distention. Cardiovascular examination reveals regular rhythm rate. S1-S2 normal. No S3 or S4. No discernible murmur noted. Heart rate 75 bpm. Lungs reveal scattered bilateral rhonchi. Breath sounds are coarse. No wheezes or crackles. Breath sounds are equal bilaterally. Saturations are 92 %. Abdomen soft bowel sounds are heard. No masses or tenderness. Extremities are intact. No cyanosis clubbing or edema. Skin is without rash or lesion. Neurologic examination cannot be evaluated as the patient's currently sedated. - Labs CBC & Chem 7: 06/09/22 08:10 06/09/22 08:10 Labs: Abnormal Lab Results - Last 24 Hours (Table) 06/08/22 06/08/22 06/09/22 Range/Units 14:56 23:20 06:00 WBC (3.8-10.6) k/uL RBC (3.80-5.40) m/uL Neutrophils # (1.3-7.7) k/uL Lymphocytes # (1.0-4.8) k/uL ABG pO2 79 L (83-108) mmHg ABG HCO3 20 L (21-25) mmol/L Chloride 116 H (98-107) mmol/L Carbon Dioxide 19 L (22-30) mmol/L BUN 29 H (7-17) mg/dL Glucose 105 H (74-99) mg/dL POC Glucose (mg/dL) 120 H (70-110) mg/dL Calcium 8.2 L (8.4-10.2) mg/dL Total Protein (6.3-8.2) g/dL Albumin (3.5-5.0) g/dL 06/09/22 06/09/22 06/09/22 Range/Units 06:10 08:10 08:10 WBC 11.1 H (3.8-10.6) k/uL RBC 3.55 L (3.80-5.40) m/uL Neutrophils # 9.9 H (1.3-7.7) k/uL Lymphocytes # 0.6 L (1.0-4.8) k/uL ABG pO2 (83-108) mmHg ABG HCO3 (21-25) mmol/L Chloride 114 H (98-107) mmol/L Carbon Dioxide 18 L (22-30) mmol/L BUN 32 H (7-17) mg/dL Glucose 125 H (74-99) mg/dL POC Glucose (mg/dL) 120 H (70-110) mg/dL Calcium 8.2 L (8.4-10.2) mg/dL Total Protein 4.7 L (6.3-8.2) g/dL Albumin 2.7 L (3.5-5.0) g/dL Microbiology - Last 24 Hours (Table) 06/08/22 16:30 Gram Stain - Preliminary Bronchoalviolar Lavage - Right Bronchial Washings Culture - Preliminary 06/08/22 16:30 Acid Fast Bacilli Culture - Preliminary Bronchoalviolar Lavage - Right 06/08/22 16:30 Fungal Culture - Preliminary Bronchoalviolar Lavage - Right 06/06/22 01:00 Gram Stain - Final Sputum Sputum Culture - Final Moraxella(branhamella) catarra Assessment and Plan Plan: Severe angioedema, with airway compromise, requiring intubation and mechanical ventilation on 06/05/2022. The angioedema is recovered and the patient has no significant swelling. Weaning parameters are adequate and there is a positive cough leak. Moraxella catarrhalis tracheobronchitis/bronchopneumonia. Is x-ray from today showing a right lower lobe patchy infiltrates which is somewhat increased compared to yesterday. Is also some increased density in the left lung base representing either infiltrate/atelectasis. Meanwhile, the patient underwent a bronchoscopy and the bronchial alveolar lavage yesterday and that is also still pending for now. Initial sputum sample was positive for Moraxella. History of hypertension. History of kidney stones. History of a lung mass, status post fine-needle aspiration, which revealed a kenna ign lesion. Plan: With the patient on his point his breathing trial and subsequently extubated the patient to a nasal cannula Continue bronchodilators Continue Decadron Change Benadryl to when necessary only Swallow evaluation after extubation and was decide accordingly if feeding is appropriate Change IV Zosyn to Rocephin Completed total of 7 day course of Rocephin While continue to follow make further recommendations based on progress. The plan for today is extubation. This occurred care evaluation and this will be done was done in more than 30 minutes. Time with Patient: Greater than 30
[2022-06-09] MEDS ORDERED: IPRATROPIUM-ALBUTEROL 3 ML NEB INHALATION PRN (12:20)
--- NOTE | 2022-06-09 14:08 | P.PN ---
Subjective Progress Note Date: 06/09/22 H&P Date: 06/05/22 Chief Complaint: ramon Alanis is a 77 yo F with PMH of HTN who presented to the ED with shortness of breath and tongue swelling. Pt intubated and sedated, history obtained from family and chart review. She was apparently in her usual state of health until early this morning around 5 am her son checked on her and noted pt to have sev ere tongue swelling and shortness of breath so called EMS. Family denies any obvious exposures to toxins, no history of asthma, allergies, anaphylaxis. Family notes a wood burning stove in the house that was recently started for the winter and pt does take lisinopril. On presentation pt tachycardic and tachypneic, was noted with severe angioedema and intubated. Labs reviewed and unremarkable. 06/09/2022 vent dependent, 3% FiO2/+5 of PEEP.sputum culture reporting mozzarella catarrhalis, maintained on Zosyn. Status post bronchoscopy yesterday with cultures and cytology pending. Continues on Decadron with lip and tongue swelling resolved. Currently on breathing trials, extubation pending. Afebrile, WBC 11.1. Objective - Vital Signs Vital signs: Vital Signs Temp 97.8 F 06/09/22 12:00 Pulse 78 06/09/22 13:00 Resp 26 H 06/09/22 13:00 BP 152/70 06/09/22 13:00 Pulse Ox 94 L 06/09/22 13:00 FiO2 30 06/09/22 11:12 Intake & Output 06/08/22 06/09/22 06/09/22 18:59 06:59 18:59 Intake Total 6901.084 9327.003 665.727 Output Total 590 570 605 Balance 1153.746 988.003 60.727 Weight 69 kg 69 kg Intake: IV 1535 1185 550 Calcium Gluconate in NaCl 100 1 gm In Saline 1 100ml. bag @ 100 mls/hr IVPB ONCE ONE Rx#:[id number] Piperacillin-Tazobactam 3 100 200 100 .375 gm In Sodium Chloride 0.9% 100 ml @ 25 mls/hr IVPB Q8H [facility] Rx#: [id number] Potassium Chloride 10 meq 400 In Water For Injection 1 100ml.bag @ 100 mls/hr IVPB Q1HR [facility] Rx#: [id number] Sodium Chloride 0.9% 1, 935 985 450 000 ml @ 75 mls/hr IV . [id number] [facility] Rx#:[id number] Intake, IV Titration 168.746 173.003 75.727 Amount propofoL 1,000 mg In 168.746 173.003 75.727 Empty Bag 1 bag @ 15 MCG/ KG/MIN 5.144 mls/hr IV . [id number] [facility] Rx#:[id number] Tube Feeding 10 110 10 Other 30 90 30 Output: Gastric Drainage 50 Urine 540 570 605 Other: Voiding Method Indwelling Catheter Indwelling Catheter Indwelling Catheter # Bowel Movements 1 - Exam Gen: well developed elderly female. Intubated, sedation off HEENT: NC/AT, mmm Neck: Supple, no JVD,no thyromegaly CV: RRR, no murmur Lungs: normal effort, clear throughout Abd: soft, nontender, non distended Skin: warm and dry - Labs CBC & Chem 7: 06/09/22 08:10 06/09/22 08:10 Labs: Abnormal Lab Results - Last 24 Hours (Table) 06/08/22 06/08/22 06/09/22 Range/Units 14:56 23:20 06:00 WBC (3.8-10.6) k/uL RBC (3.80-5.40) m/uL Neutrophils # (1.3-7.7) k/uL Lymphocytes # (1.0-4.8) k/uL ABG pO2 79 L (83-108) mmHg ABG HCO3 20 L (21-25) mmol/L Chloride 116 H (98-107) mmol/L Carbon Dioxide 19 L (22-30) mmol/L BUN 29 H (7-17) mg/dL Glucose 105 H (74-99) mg/dL POC Glucose (mg/dL) 120 H (70-110) mg/dL Calcium 8.2 L (8.4-10.2) mg/dL Total Protein (6.3-8.2) g/dL Albumin (3.5-5.0) g/dL 06/09/22 06/09/22 06/09/22 Range/Units 06:10 08:10 08:10 WBC 11.1 H (3.8-10.6) k/uL RBC 3.55 L (3.80-5.40) m/uL Neutrophils # 9.9 H (1.3-7.7) k/uL Lymphocytes # 0.6 L (1.0-4.8) k/uL ABG pO2 (83-108) mmHg ABG HCO3 (21-25) mmol/L Chloride 114 H (98-107) mmol/L Carbon Dioxide 18 L (22-30) mmol/L BUN 32 H (7-17) mg/dL Glucose 125 H (74-99) mg/dL POC Glucose (mg/dL) 120 H (70-110) mg/dL Calcium 8.2 L (8.4-10.2) mg/dL Total Protein 4.7 L (6.3-8.2) g/dL Albumin 2.7 L (3.5-5.0) g/dL Microbiology - Last 24 Hours (Table) 06/08/22 16:30 Gram Stain - Preliminary Bronchoalviolar Lavage - Right Bronchial Washings Culture - Preliminary 06/08/22 16:30 Acid Fast Bacilli Culture - Preliminary Bronchoalviolar Lavage - Right 06/08/22 16:30 Fungal Culture - Preliminary Bronchoalviolar Lavage - Right 06/06/22 01:00 Gram Stain - Final Sputum Sputum Culture - Final Moraxella(branhamella) catarra Assessment and Plan Assessment: Severe angioedema with airway compromise, intubated. Moraxella catarrhalis tracheobronchitis/bronchopneumonia. Bronchoscopy cytology, cultures pending. Hypertension Ongoing nicotine dependence Plan: Continue on current medication regime ,monitoring and symptomatic treatment. Continues on Zosyn, Decadron. Scheduled for weaning trials and potential extubation this morning. The impression and plan of care has been dictated as directed. : I performed a history and examination of this patient, discussed the same with the dictator. I agree with the dictator's note ,documented as a scribe. Any additional findings or plans will be noted.
[2022-06-09] MEDS: SODIUM CHLORIDE 0.9% 1,000 ML IV SCH (18:23)
[2022-06-09] MEDS: LOSARTAN 50 MG TAB PO SCH (20:16)
[2022-06-09 23:39] LABS: Glucose,Whole Blood 137 mg/dL (70-110)
[2022-06-10] MEDS: DEXAMETHASONE SOD PHOSPHATE 10 MG/ML 1 ML VIAL IVP SCH ×2 (01:28→06:45)
[2022-06-10] MEDS: hydrALAZINE HCL 20 MG/ML 1 ML VIAL IVP PRN ×3 (04:17→20:48)
[2022-06-10 06:43] LABS: Basophils % (A) 0 %; Eosinophils % (A) 0 %; HCT 37.2 % (34.0-46.0); HGB 12.3 gm/dL (11.4-16.0); Lymphocytes # (A) 0.8 k/uL (1.0-4.8); Lymphocytes % (A) 6 %; MCH 31.7 pg (25.0-35.0); MCHC 33.2 g/dL (31.0-37.0); MCV 95.6 fL (80.0-100.0); Mean Platelet Volume 8.7; Monocytes # (A) 0.6 k/uL (0-1.0); Monocytes % (A) 5 %; Neutrophils # (A) 11.5 k/uL (1.3-7.7); Neutrophils % (A) 87 %; Platelet Count 306 k/uL (150-450); RBC 3.89 m/uL (3.80-5.40); RDW 14.3 % (11.5-15.5); WBC 13.3 k/uL (3.8-10.6)
[2022-06-10] MEDS: SODIUM CHLORIDE 0.9% 1,000 ML IV SCH ×2 (06:48→17:11)
[2022-06-10 06:59] LABS: African American GFR (CKD) >90 (>60 ml/min/1.73 sqM); Anion Gap 5 mmol/L; Blood Urea Nitrogen 27 mg/dL (7-17); Calcium 8.3 mg/dL (8.4-10.2); Carbon Dioxide 23 mmol/L (22-30); Chloride 112 mmol/L (98-107); Glucose 111 mg/dL (74-99); Non-African American GFR(CKD) 88 (>60 ml/min/1.73 sqM); Sodium 140 mmol/L (137-145)
[2022-06-10] MEDS: FAMOTIDINE 20 MG/2 ML VIAL IV SCH ×2 (08:07→19:59)
[2022-06-10] MEDS: amLODIPine 10 MG TAB PO SCH (08:07)
[2022-06-10] MEDS: LOSARTAN 50 MG TAB PO SCH (08:07)
[2022-06-10] MEDS ORDERED: BENZOCAINE/MENTHOL LOZENG 1 EACH LOZENGE MUCOUS MEM PRN (08:20)
[2022-06-10] MEDS: IPRATROPIUM-ALBUTEROL 3 ML NEB INHALATION SCH ×4 (08:30→21:54)
[2022-06-10 11:11] LABS: Glucose,Whole Blood 111 mg/dL (70-110)
--- NOTE | 2022-06-10 15:23 | P.PN ---
Subjective Progress Note Date: 06/10/22 On 06/09/2022, the patient is awake and alert and she is off sedation. She is following simple commands. She has no lip swelling or tongue swelling of this morning. She is on a mechanical ventilator. She is intubated by a #7.582. She is on assist control mode with a rate of 18 with a tidal volume of 450 and FiO2 of 30% with a PEEP of 5. Blood gas showed a pH of 7.36 with a pCO2 of 35 and pO2 of 79. The patient is on Decadron 6 mg IV every 6 hours, Benadryl 25 mg every 6 hours, Pepcid 20 mg IV every 12 hours. She is covered with IV Zosyn as an empiric antibiotic coverage. The microbial culture from the sputum showed Moraxella catarrhalis. She is afebrile. She is hemodynamically stable. Noted the patient was taken lisinopril and the patient was taking nonsteroidal anti- and hematocrit medications on an outpatient basis. The patient has no other issues for now. Hemodynamically stable. Urine output is adequate. Blood work from today showed a white cell count of 11.1 with a hemoglobin of 11.4 and a platelet count of 255. The sodium is at 138, BUN is at 32 with a creatinine of 0.6 and a potassium level of 4.3. On 06/10/2022, the patient is awake and alert and the patient is extubated. I was able to successfully extubate the patient yesterday without any major difficulties. She continues to have some hoarseness for now. For the most part, the patient is doing well and she has no specific complaints. She is sitting up on a chair. She is currently on oxygen on 2 L/m nasal cannula. No chest x-rays available from today. The chest x-ray from yesterday showed some patchy infiltration of the right lower lobe that needs to be further monitored. No tongue swelling. No lip swelling. The patient's swallow is adequate for now. The blood work from today shows a white second of 15.3 with a hemoglobin of 12.3 and a platelet count of 6, BUN is 27 with a creatinine of 0.6 and a sodium level is at 40. No other significant events. She will go 4 extremities without limitation and the patient remains on IV Zosyn. Objective - Vital Signs Vital signs: Vital Signs Temp 97.4 F L 06/10/22 08:00 Pulse 70 06/10/22 09:00 Resp 30 H 06/10/22 09:00 BP 176/76 06/10/22 09:00 Pulse Ox 91 L 06/10/22 09:00 FiO2 30 06/09/22 11:12 Intake & Output 06/09/22 06/10/22 06/10/22 18:59 06:59 18:59 Intake Total 1040.727 900 515 Output Total 1675 2070 1075 Balance -634.273 -1170 -560 Weight 69 kg Intake: IV 925 900 275 Piperacillin-Tazobactam 3 100 .375 gm In Sodium Chloride 0.9% 100 ml @ 25 mls/hr IVPB Q8H [facility] Rx#: [id number] Sodium Chloride 0.9% 1, 825 900 225 000 ml @ 75 mls/hr IV . [id number] [facility] Rx#:[id number] cefTRIAXone 2 gm In 50 Sodium Chloride 0.9% 50 ml @ 100 mls/hr IVPB Q24HR [facility] Rx#:[id number] Intake, IV Titration 75.727 Amount propofoL 1,000 mg In 75.727 Empty Bag 1 bag @ 15 MCG/ KG/MIN 5.144 mls/hr IV . [id number] [facility] Rx#:[id number] Oral 240 Tube Feeding 10 Other 30 Output: Urine 1675 2070 1075 Other: Voiding Method Indwelling Catheter Indwelling Catheter - Exam No acute distress, OA x3 , extubated and the patient is currently on 2 L O2 nasal cannula HEENT examination is grossly unremarkable. Neck supple. Full range of motion. No adenopathy thyromegaly or neck vein distention. Cardiovascular examination reveals regular rhythm rate. S1-S2 normal. No S3 or S4. No discernible murmur noted. Lungs reveal scattered bilateral rhonchi. Breath sounds are coarse. No wheezes or crackles. Breath sounds are equal bilaterally. Abdomen soft bowel sounds are heard. No masses or tenderness. Extremities are intact. No cyanosis clubbing or edema. Skin is without rash or lesion. Neurologically, the patient is awake and alert and the patient does not have any focal neurological deficit. Cranial nerves are essentially intact.. - Labs CBC & Chem 7: 06/10/22 06:03 06/10/22 06:03 Labs: Abnormal Lab Results - Last 24 Hours (Table) 06/09/22 06/10/22 06/10/22 Range/Units 23:36 06:03 06:03 WBC 13.3 H (3.8-10.6) k/uL Neutrophils # 11.5 H (1.3-7.7) k/uL Lymphocytes # 0.8 L (1.0-4.8) k/uL Chloride 112 H (98-107) mmol/L BUN 27 H (7-17) mg/dL Glucose 111 H (74-99) mg/dL POC Glucose (mg/dL) 137 H (70-110) mg/dL Calcium 8.3 L (8.4-10.2) mg/dL Microbiology - Last 24 Hours (Table) 06/08/22 16:30 Acid Fast Bacilli Smear - Final Bronchoalviolar Lavage - Right Acid Fast Bacilli Culture - Preliminary 06/08/22 16:30 Gram Stain - Preliminary Bronchoalviolar Lavage - Right Bronchial Washings Culture - Preliminary Assessment and Plan Plan: Severe angioedema, with airway compromise, requiring intubation and mechanical ventilation on 06/05/2022. The patient was extubated on 06/09/2022 after successful treatment of angioedema with steroids and Benadryl and H2 blockers. The patient was extubated and the patient is currently on 2 L of oxygen by nasal cannula. Moraxella catarrhalis tracheobronchitis/bronchopneumonia. Is x-ray from today showing a right lower lobe patchy infiltrates which is somewhat increased compared to yesterday. Is also some increased density in the left lung base representing either infiltrate/atelectasis. Meanwhile, the patient underwent a bronchoscopy and the bronchial alveolar lavage yesterday and that is also still pending for now. Initial sputum sample was positive for Moraxella. The patient remains on IV Rocephin History of hypertension. History of kidney stones. History of a lung mass, status post fine-needle aspiration, which revealed a benign lesion. Plan: Provide the patient incentive spirometer The patient was noted to have some hoarseness and we'll do an ENT evaluation if the patient continues to be hoarse Continue IV Rocephin regarding the Moraxella infection Continue Decadron and dropped the dose to 6 mg by mouth on a daily basis Swallow is appropriate Home medications have been resumed We'll transfer this patient out of the intensive care unit
[2022-06-10] MEDS: diphenhydrAMINE 50 MG/ML 1 ML VIAL IVP SCH (17:10)
--- NOTE | 2022-06-10 17:16 | P.PN ---
Subjective Progress Note Date: 06/10/22 H&P Date: 06/05/22 Chief Complaint: ramon Alanis is a 77 yo F with PMH of HTN who presented to the ED with shortness of breath and tongue swelling. Pt intubated and sedated, history obtained from family and chart review. She was apparently in her usual state of health until early this morning around 5 am her son checked on her and noted pt to have sev ere tongue swelling and shortness of breath so called EMS. Family denies any obvious exposures to toxins, no history of asthma, allergies, anaphylaxis. Family notes a wood burning stove in the house that was recently started for the winter and pt does take lisinopril. On presentation pt tachycardic and tachypneic, was noted with severe angioedema and intubated. Labs reviewed and unremarkable. 06/09/2022 vent dependent, 3% FiO2/+5 of PEEP.sputum culture reporting mozzarella catarrhalis, maintained on Zosyn. Status post bronchoscopy yesterday with cultures and cytology pending. Continues on Decadron with lip and tongue swelling resolved. Currently on breathing trials, extubation pending. Afebrile, WBC 11.1. 06/10/2022 extubated yesterday, maintaining O2 sats in the 90s on 2 L nasal c annula. Maintained on IV antibiotics, and Decadron .afebrile, WBC 13.3 .bronchial washings/lavage -cytology reported no malignant cells identified. Bronchoscopy cultures finalizing. Hoarse with loose congested cough, with no further tongue or lip swelling. Denies difficulty swallowing .Patient reports that once before she had a prior basic induced angioedema to a lesser extent. Denies chest pain, palpitations or shortness of breath. Objective - Vital Signs Vital signs: Vital Signs Temp 97.6 F 06/10/22 16:00 Pulse 80 06/10/22 11:43 Resp 22 06/10/22 16:00 BP 177/84 06/10/22 16:00 Pulse Ox 93 L 06/10/22 16:00 FiO2 30 06/09/22 11:12 Intake & Output 06/09/22 06/10/22 06/10/22 18:59 06:59 18:59 Intake Total 1040.727 900 590 Output Total 1675 2070 2690 Balance -634.273 -1170 -2100 Weight 69 kg 64.2 kg Intake: IV 925 900 350 Piperacillin-Tazobactam 3 100 .375 gm In Sodium Chloride 0.9% 100 ml @ 25 mls/hr IVPB Q8H [facility] Rx#: [id number] Sodium Chloride 0.9% 1, 825 900 300 000 ml @ 75 mls/hr IV . [id number] [facility] Rx#:[id number] cefTRIAXone 2 gm In 50 Sodium Chloride 0.9% 50 ml @ 100 mls/hr IVPB Q24HR [facility] Rx#:[id number] Intake, IV Titration 75.727 Amount propofoL 1,000 mg In 75.727 Empty Bag 1 bag @ 15 MCG/ KG/MIN 5.144 mls/hr IV . [id number] [facility] Rx#:[id number] Oral 240 Tube Feeding 10 Other 30 Output: Urine 1675 2070 2690 Other: Voiding Method Indwelling Catheter Indwelling Catheter Indwelling Catheter - Exam Gen: Sitting up in chair, extubated, no acute distress HEENT: NC/AT, mmm Neck: Supple, no JVD,no thyromegaly CV: RRR, no murmur Lungs: normal effort, clear throughout, loose congested cough Abd: soft, nontender, non distended NEURO: No focal deficits Skin: warm and dry - Labs CBC & Chem 7: 06/10/22 06:03 06/10/22 06:03 Labs: Abnormal Lab Results - Last 24 Hours (Table) 06/08/22 06/09/22 06/10/22 Range/Units 16:30 23:36 06:03 WBC 13.3 H (3.8-10.6) k/uL Neutrophils # 11.5 H (1.3-7.7) k/uL Lymphocytes # 0.8 L (1.0-4.8) k/uL Chloride (98-107) mmol/L BUN (7-17) mg/dL Glucose (74-99) mg/dL POC Glucose (mg/dL) 137 H (70-110) mg/dL Calcium (8.4-10.2) mg/dL Viral Test See Below A 06/10/22 06/10/22 Range/Units 06:03 11:09 WBC (3.8-10.6) k/uL Neutrophils # (1.3-7.7) k/uL Lymphocytes # (1.0-4.8) k/uL Chloride 112 H (98-107) mmol/L BUN 27 H (7-17) mg/dL Glucose 111 H (74-99) mg/dL POC Glucose (mg/dL) 111 H (70-110) mg/dL Calcium 8.3 L (8.4-10.2) mg/dL Viral Test Microbiology - Last 24 Hours (Table) 06/08/22 16:30 Gram Stain - Final Bronchoalviolar Lavage - Right Bronchial Washings Culture - Final 06/08/22 16:30 Acid Fast Bacilli Smear - Final Bronchoalviolar Lavage - Right Acid Fast Bacilli Culture - Preliminary Assessment and Plan Assessment: Severe angioedema with airway compromise, status post mechanical ventilation Moraxella catarrhalis tracheobronchitis/bronchopneumonia. Bronchoscopy cytology did not report malignant cells, cultures pending. Hypertension Ongoing nicotine dependence Plan: Continue on current medication regime ,monitoring and symptomatic treatment. Continues on IV antibiotics, Decadron. PT. The impression and plan of care has been dictated as directed. : I performed a history and examination of this patient, discussed the same with the dictator. I agree with the dictator's note ,documented as a scribe. Any additional findings or plans will be noted.
[2022-06-10] MEDS ORDERED: DEXAMETHASONE SOD PHOSPHATE 10 MG/ML 1 ML VIAL IVP SCH (21:00)
[2022-06-11] MEDS: SODIUM CHLORIDE 0.9% 1,000 ML IV SCH ×2 (02:13→17:39)
[2022-06-11] MEDS: hydrALAZINE HCL 20 MG/ML 1 ML VIAL IVP PRN (03:58)
[2022-06-11] MEDS: IPRATROPIUM-ALBUTEROL 3 ML NEB INHALATION SCH ×4 (08:49→22:24)
[2022-06-11] MEDS: FAMOTIDINE 20 MG/2 ML VIAL IV SCH ×2 (09:42→19:55)
[2022-06-11] MEDS: LOSARTAN 50 MG TAB PO SCH (09:42)
[2022-06-11] MEDS: dexAMETHasone 2 MG TAB PO SCH (09:42)
[2022-06-11] MEDS: amLODIPine 10 MG TAB PO SCH (09:42)
[2022-06-11 14:37] VITALS: BMI 27.1
--- NOTE | 2022-06-11 17:07 | P.PN ---
Subjective Progress Note Date: 06/11/22 On 06/09/2022, the patient is awake and alert and she is off sedation. She is following simple commands. She has no lip swelling or tongue swelling of this morning. She is on a mechanical ventilator. She is intubated by a #7.582. She is on assist control mode with a rate of 18 with a tidal volume of 450 and FiO2 of 30% with a PEEP of 5. Blood gas showed a pH of 7.36 with a pCO2 of 35 and pO2 of 79. The patient is on Decadron 6 mg IV every 6 hours, Benadryl 25 mg every 6 hours, Pepcid 20 mg IV every 12 hours. She is covered with IV Zosyn as an empiric antibiotic coverage. The microbial culture from the sputum showed Moraxella catarrhalis. She is afebrile. She is hemodynamically stable. Noted the patient was taken lisinopril and the patient was taking nonsteroidal anti- and hematocrit medications on an outpatient basis. The patient has no other issues for now. Hemodynamically stable. Urine output is adequate. Blood work from today showed a white cell count of 11.1 with a hemoglobin of 11.4 and a platelet count of 255. The sodium is at 138, BUN is at 32 with a creatinine of 0.6 and a potassium level of 4.3. On 06/10/2022, the patient is awake and alert and the patient is extubated. I was able to successfully extubate the patient yesterday without any major difficulties. She continues to have some hoarseness for now. For the most part, the patient is doing well and she has no specific complaints. She is sitting up on a chair. She is currently on oxygen on 2 L/m nasal cannula. No chest x-rays available from today. The chest x-ray from yesterday showed some patchy infiltration of the right lower lobe that needs to be further monitored. No tongue swelling. No lip swelling. The patient's swallow is adequate for now. The blood work from today shows a white second of 15.3 with a hemoglobin of 12.3 and a platelet count of 6, BUN is 27 with a creatinine of 0.6 and a sodium level is at 40. No other significant events. She will go 4 extremities without limitation and the patient remains on IV Zosyn. On today's evaluation of 06/10/2022, the patient remains extubated. Her wasn't gradually improving. She remains on Decadron which is being given intravenous 60 mg by mouth daily and the patient is completing a course of IV Rocephin. She is on bronchodilators around the clock. She is weak. She has a congested cough. She remains on O2 at 2 L/m nasal cannula. She was transferred out of the intensive care unit. She is on normal saline at the rate of 75 mL an hour. The blood work from today shows a white second of 50 with a hemoglobin of 12.3, BUN is 27 with a creatinine of 0.6 and a sodium level is at 140. Objective - Vital Signs Vital signs: Vital Signs Temp 97.1 F L 06/11/22 08:40 Pulse 79 06/11/22 10:34 Resp 19 06/11/22 08:40 BP 160/72 06/11/22 10:34 Pulse Ox 96 06/11/22 08:52 FiO2 30 06/09/22 11:12 Intake & Output 06/10/22 06/11/22 06/11/22 18:59 06:59 18:59 Intake Total 590 0 Output Total 3690 800 650 Balance -3100 -800 -650 Weight 64.2 kg 65 kg Intake: IV 350 Sodium Chloride 0.9% 1, 300 000 ml @ 75 mls/hr IV . [id number] [facility] Rx#:[id number] cefTRIAXone 2 gm In 50 Sodium Chloride 0.9% 50 ml @ 100 mls/hr IVPB Q24HR [facility] Rx#:[id number] Oral 240 0 Output: Urine 3690 800 650 Other: Voiding Method External Catheter External Catheter External Catheter # Bowel Movements 1 - Exam No acute distress, OA x3 , extubated and the patient is currently on 2 L O2 nasal cannula HEENT examination is grossly unremarkable. Neck supple. Full range of motion. No adenopathy thyromegaly or neck vein distention. Cardiovascular examination reveals regular rhythm rate. S1-S2 normal. No S3 or S4. No discernible murmur noted. Lungs reveal scattered bilateral rhonchi. Breath sounds are coarse. No wheezes or crackles. Breath sounds are equal bilaterally. Abdomen soft bowel sounds are heard. No masses or tenderness. Extremities are intact. No cyanosis clubbing or edema. Skin is without rash or lesion. Neurologically, the patient is awake and alert and the patient does not have any focal neurological deficit. Cranial nerves are essentially intact.. - Labs CBC & Chem 7: 06/10/22 06:03 06/10/22 06:03 Labs: Abnormal Lab Results - Last 24 Hours (Table) 06/08/22 Range/Units 16:30 Viral Test See Below A Microbiology - Last 24 Hours (Table) 06/08/22 16:30 Gram Stain - Final Bronchoalviolar Lavage - Right Bronchial Washings Culture - Final Assessment and Plan Plan: Severe angioedema, with airway compromise, requiring intubation and mechanical ventilation on 06/05/2022. The patient was extubated on 06/09/2022 after successful treatment of angioedema with steroids and Benadryl and H2 blockers. The patient was extubated and the patient is currently on 2 L of oxygen by nasal cannula. Moraxella catarrhalis tracheobronchitis/bronchopneumonia. Is x-ray from today showing a right lower lobe patchy infiltrates which is somewhat increased compared to yesterday. Is also some increased density in the left lung base representing either infiltrate/atelectasis. Meanwhile, the patient underwent a bronchoscopy and the bronchial alveolar lavage yesterday and that is also still pending for now. Initial sputum sample was positive for Moraxella. The patient remains on IV Rocephin History of hypertension. History of kidney stones. History of a lung mass, status post fine-needle aspiration, which revealed a benign lesion. Plan: change IV fluids to KVO Provide the patient incentive spirometer The patient was noted to have some hoarseness and we'll do an ENT evaluation if the patient continues to be hoarse Continue IV Rocephin regarding the Moraxella infection Continue Decadron 6 mg by mouth on a daily basis Swallow is appropriate Home medications have been resumed give Lasix 20 mg IV push 1 increase mobility and discharge planning
[2022-06-11] MEDS ORDERED: FUROSEMIDE 10 MG/ML 2 ML VIAL IV ONE (17:30)
--- NOTE | 2022-06-11 22:39 | P.PN ---
Subjective Progress Note Date: 06/11/22 Marcela Alanis is a 77 yo F with PMH of HTN who presented to the ED with shortness of breath and tongue swelling. Pt intubated and sedated, history obtained from family and chart review. She was apparently in her usual state of health until early this morning around 5 am her son checked on her and noted pt to have severe tongue swelling and shortness of breath so called EMS. Family denies any obvious exposures to toxins, no history of asthma, allergies, anaphylaxis. Family notes a wood burning stove in the house that was recently started for the winter and pt does take lisinopril. On presentation pt tachycardic and tachypneic, was noted with severe angioedema and intubated. Labs reviewed and unremarkable. 06/09/2022 vent dependent, 3% FiO2/+5 of PEEP.sputum culture reporting mozzarella catarrhalis, maintained on Zosyn. Status post bronchoscopy yesterday with cultures and cytology pending. Continues on Decadron with lip and tongue swelling resolved. Currently on breathing trials, extubation pending. Afebrile, WBC 11.1. 06/10/2022 extubated yesterday, maintaining O2 sats in the 90s on 2 L nasal cannula. Maintained on IV antibiotics, and Decadron .afebrile, WBC 13.3 .bronchial washings/lavage -cytology reported no malignant cells identified. Bronchoscopy cultures finalizing. Hoarse with loose congested cough, with no further tongue or lip swelling. Denies difficulty swallowing .Patient reports that once before she had a prior basic induced angioedema to a lesser extent. Denies chest pain, palpitations or shortness of breath. 06/11/2022. She is up in the chair today, no longer on O2, she is feeling improved although continues to complain of cough and hoarse voice. No chest pain, shortness of breath, lip or tongue tingling or numbness. Objective - Vital Signs Vital signs: Vital Signs Temp 97.9 F 06/11/22 20:00 Pulse 79 06/11/22 20:00 Resp 17 06/11/22 20:00 BP 130/60 06/11/22 20:00 Pulse Ox 94 L 06/11/22 20:00 FiO2 30 06/09/22 11:12 Intake & Output 06/11/22 06/11/22 06/12/22 06:59 18:59 06:59 Intake Total 1190 Output Total 800 650 Balance -800 540 Weight 65 kg 65 kg Intake: IV 950 Sodium Chloride 0.9% 1, 900 000 ml @ 10 mls/hr IV . Q24H [facility] Rx#:[id number] cefTRIAXone 2 gm In 50 Sodium Chloride 0.9% 50 ml @ 100 mls/hr IVPB Q24HR [facility] Rx#:[id number] Oral 240 Output: Urine 800 650 Other: Voiding Method External Catheter External Catheter External Catheter # Voids 1 # Bowel Movements 1 1 - Exam General: well nourished, well developed, NAD. Vitals reviewed Lungs: normal respiratory effort, no wheezes or rales CV: Regular rate and rhythm, no murmur. Peripheral pulses 2+ Abdomen: soft, nondistended, no organomegaly Skin: warm and dry. - Labs CBC & Chem 7: 06/10/22 06:03 06/10/22 06:03 Assessment and Plan Plan: Continue with current regimen, PO steroids and IV rocephin. O2 saturations 92% on RA, encourage ambulation and IS. Discharge planning in progress
[2022-06-12] MEDS ORDERED: guaiFENesin-DM 100-10MG/5ML 10 ML CUP PO PRN (00:21)
[2022-06-12] MEDS: hydrALAZINE HCL 20 MG/ML 1 ML VIAL IVP PRN (03:30)
[2022-06-12] MEDS: dexAMETHasone 2 MG TAB PO SCH (08:18)
[2022-06-12] MEDS: LOSARTAN 50 MG TAB PO SCH (08:19)
[2022-06-12] MEDS: amLODIPine 10 MG TAB PO SCH (08:19)
[2022-06-12] MEDS: FAMOTIDINE 20 MG/2 ML VIAL IV SCH ×2 (08:19→20:57)
[2022-06-12] MEDS: IPRATROPIUM-ALBUTEROL 3 ML NEB INHALATION SCH ×4 (08:57→21:26)
--- NOTE | 2022-06-12 11:00 | P.PN ---
Subjective From records Marcela Alanis is a 77 yo F with PMH of HTN who presented to the ED with shortness of breath and tongue swelling. Pt intubated and sedated, history obtained from family and chart review. She was apparently in her usual state of health until early this morning around 5 am her son checked on her and noted pt to have severe tongue swelling and shortness of breath so called EMS. Family denies any obvious exposures to toxins, no history of asthma, allergies, anaphylaxis. Family notes a wood burning stove in the house that was recently started for the winter and pt does take lisinopril. On presentation pt tachycardic and tachypneic, was noted with severe angioedema and intubated. Labs reviewed and unremarkable. 06/09/2022 vent dependent, 3% FiO2/+5 of PEEP.sputum culture reporting mozzarella catarrhalis, maintained on Zosyn. Status post bronchoscopy yesterday with cultures and cytology pending. Continues on Decadron with lip and tongue swelling resolved. Currently on breathing trials, extubation pending. Afebrile, WBC 11.1. 06/10/2022 extubated yesterday, maintaining O2 sats in the 90s on 2 L nasal cannula. Maintained on IV antibiotics, and Decadron .afebrile, WBC 13.3 .bronchial washings/lavage -cytology reported no malignant cells identified. Bronchoscopy cultures finalizing. Hoarse with loose congested cough, with no further tongue or lip swelling. Denies difficulty swallowing .Patient reports that once before she had a prior basic induced angioedema to a lesser extent. Denies chest pain, palpitations or shortness of breath. 06/11/2022. She is up in the chair today, no longer on O2, she is feeling impro yariel although continues to complain of cough and hoarse voice. No chest pain, shortness of breath, lip or tongue tingling or numbness. Subjective: 06/12/2022 This is a pleasant 77 years old female who presents with severe angioedema, she was treated conservatively with antihistamine and H2 babita, her airway is patent and she is breathing more easily however she still tachypneic while sitting in bed most of the time. She feels generally weak. However she states her dyspnea is not that at rest, she still have some coughing and clear phlegm. Patient easily tachypneic when she started talking. Patient status post bronchoscopy and bronchoalveolar lavage is pending. Patients and daughter wants to go to subacute rehab. Patient looks and agreeable with this plan. Patient complaining of from diarrhea C. diff is negative, Imodium is added, no abdominal pain, no vomiting, eating well. Objective - Vital Signs Vital signs: Vital Signs Temp 97.8 F 06/12/22 08:14 Pulse 79 06/12/22 09:11 Resp 18 06/12/22 08:43 BP 137/68 06/12/22 08:14 Pulse Ox 95 06/12/22 08:59 FiO2 30 06/09/22 11:12 Intake & Output 06/11/22 06/12/22 06/12/22 18:59 06:59 18:59 Intake Total 1190 118 Output Total 650 750 Balance 540 -750 118 Weight 65 kg 64 kg Intake: IV 950 Sodium Chloride 0.9% 1, 900 000 ml @ 10 mls/hr IV . Q24H [facility] Rx#:[id number] cefTRIAXone 2 gm In 50 Sodium Chloride 0.9% 50 ml @ 100 mls/hr IVPB Q24HR [facility] Rx#:[id number] Oral 240 118 Output: Urine 650 750 Other: Voiding Method External Catheter External Catheter External Catheter # Voids 1 # Bowel Movements 1 1 - Exam -GENERAL: The patient is alert and oriented x3, not in any acute distress. Well developed, well nourished. Generally weak HEENT: Pupils are round and equally reacting to light. EOMI. No scleral icterus. No conjunctival pallor. Normocephalic, atraumatic. No pharyngeal erythema. No thyromegaly. CARDIOVASCULAR: S1 and S2 present. No murmurs, rubs, or gallops. -PULMONARY: Chest is clear to auscultation, no wheezing , tachypnea ABDOMEN: Soft, nontender, nondistended, normoactive bowel sounds. No palpable organomegaly. MUSCULOSKELETAL: No joint swelling or deformity. EXTREMITIES: No cyanosis, clubbing, or pedal edema. NEUROLOGICAL: Gross neurological examination did not reveal any focal deficits. SKIN: No rashes. no petechiae. - Labs CBC & Chem 7: 06/10/22 06:03 06/10/22 06:03 Assessment and Plan Assessment: Severe angioedema requiring short-term mechanical ventilation, improved Acute hypoxic respiratory failure Right more than left lower lobe pneumonia, status post bronchoscopy and bronchoalveolar left patch on 06/10 Nicotine dependence Generalized weakness and deconditioning Diarrhea with C. diff negative Plan: Continue with ceftriaxone Continue with dexamethasone Pulmonary consult C. diff negative, Imodium when necessary is added Labs and medication were reviewed.. Continue same treatment. Continue with symptomatic treatment. Resume home medication. Monitor labs and vitals. DVT and GI prophylaxis. Further recommendations as per clinical course of the patient DVT prophylaxis: Subcutaneous heparin GI Prophylaxis: Pepcid PT/OT: Lea Prognosis is guarded
[2022-06-12] MEDS: LOPERAMIDE 2 MG CAP PO PRN ×2 (11:43→14:49)
[2022-06-12] MEDS: SODIUM CHLORIDE 0.9% 1,000 ML IV SCH (14:49)
--- NOTE | 2022-06-12 15:26 | P.PN ---
Subjective Progress Note Date: 06/12/22 On 06/09/2022, the patient is awake and alert and she is off sedation. She is following simple commands. She has no lip swelling or tongue swelling of this morning. She is on a mechanical ventilator. She is intubated by a #7.582. She is on assist control mode with a rate of 18 with a tidal volume of 450 and FiO2 of 30% with a PEEP of 5. Blood gas showed a pH of 7.36 with a pCO2 of 35 and pO2 of 79. The patient is on Decadron 6 mg IV every 6 hours, Benadryl 25 mg every 6 hours, Pepcid 20 mg IV every 12 hours. She is covered with IV Zosyn as an empiric antibiotic coverage. The microbial culture from the sputum showed Moraxella catarrhalis. She is afebrile. She is hemodynamically stable. Noted the patient was taken lisinopril and the patient was taking nonsteroidal anti- and hematocrit medications on an outpatient basis. The patient has no other issues for now. Hemodynamically stable. Urine output is adequate. Blood work from today showed a white cell count of 11.1 with a hemoglobin of 11.4 and a platelet count of 255. The sodium is at 138, BUN is at 32 with a creatinine of 0.6 and a potassium level of 4.3. On 06/10/2022, the patient is awake and alert and the patient is extubated. I was able to successfully extubate the patient yesterday without any major difficulties. She continues to have some hoarseness for now. For the most part, the patient is doing well and she has no specific complaints. She is sitting up on a chair. She is currently on oxygen on 2 L/m nasal cannula. No chest x-rays available from today. The chest x-ray from yesterday showed some patchy infiltration of the right lower lobe that needs to be further monitored. No tongue swelling. No lip swelling. The patient's swallow is adequate for now. The blood work from today shows a white second of 15.3 with a hemoglobin of 12.3 and a platelet count of 6, BUN is 27 with a creatinine of 0.6 and a sodium level is at 40. No other significant events. She will go 4 extremities without limitation and the patient remains on IV Zosyn. On today's evaluation of 06/11/2022, the patient remains extubated. Her wasn't gradually improving. She remains on Decadron which is being given intravenous 6 mg by mouth daily and the patient is completing a course of IV Rocephin. She is on bronchodilators around the clock. She is weak. She has a congested cough. She remains on O2 at 2 L/m nasal cannula. She was transferred out of the intensive care unit. She is on normal saline at the rate of 75 mL an hour. The blood work from today shows a white second of 50 with a hemoglobin of 12.3, BUN is 27 with a creatinine of 0.6 and a sodium level is at 140. On 06/12/2022, the patient continues to improve. Speech is improved and was connected a 6 is also improved. No new complaints otherwise for now. She remains on Decadron 6 mg by mouth daily. She remains on IV Rocephin and bronch odilators. Communicating. Ambulating. IV fluids running at 75 mL an hour and this will be cut down to KVO. No other significant events otherwise for now. No blood work from today. Stool for C. diff has been negative. Objective - Vital Signs Vital signs: Vital Signs Temp 97.8 F 06/12/22 08:14 Pulse 83 06/12/22 15:21 Resp 16 06/12/22 15:21 BP 122/62 06/12/22 15:21 Pulse Ox 93 L 06/12/22 15:21 FiO2 30 06/09/22 11:12 Intake & Output 06/11/22 06/12/22 06/12/22 18:59 06:59 18:59 Intake Total 1190 118 Output Total 650 750 Balance 540 -750 118 Weight 65 kg 64 kg Intake: IV 950 Sodium Chloride 0.9% 1, 900 000 ml @ 10 mls/hr IV . Q24H [facility] Rx#:[id number] cefTRIAXone 2 gm In 50 Sodium Chloride 0.9% 50 ml @ 100 mls/hr IVPB Q24HR [facility] Rx#:[id number] Oral 240 118 Output: Urine 650 750 Other: Voiding Method External Catheter External Catheter External Catheter # Voids 1 # Bowel Movements 1 1 2 - Exam No acute distress, OA x3 , extubated and the patient is currently on 2 L O2 nasal cannula HEENT examination is grossly unremarkable. Neck supple. Full range of motion. No adenopathy thyromegaly or neck vein distention. Cardiovascular examination reveals regular rhythm rate. S1-S2 normal. No S3 or S4. No discernible murmur noted. Lungs reveal scattered bilateral rhonchi. Breath sounds are coarse. No wheezes or crackles. Breath sounds are equal bilaterally. Abdomen soft bowel sounds are heard. No masses or tenderness. Extremities are intact. No cyanosis clubbing or edema. Skin is without rash or lesion. Neurologically, the patient is awake and alert and the patient does not have any focal neurological deficit. Cranial nerves are essentially intact.. - Labs CBC & Chem 7: 06/10/22 06:03 06/10/22 06:03 Assessment and Plan Plan: Severe angioedema, with airway compromise, requiring intubation and mechanical ventilation on 06/05/2022. The patient was extubated on 06/09/2022 after successful treatment of angioedema with steroids and Benadryl and H2 blockers. The patient was extubated and the patient is currently on 2 L of oxygen by nasal cannula. The patient's angioedema is recovered and the patient was extubated without any major difficulties. No facial swelling. No tongue or lip swelling. No signs of any respiratory compromise. Moraxella catarrhalis tracheobronchitis/bronchopneumonia. Is x-ray from today showing a right lower lobe patchy infiltrates which is somewhat increased compared to yesterday. Is also some increased density in the left lung base representing either infiltrate/atelectasis. Meanwhile, the patient underwent a bronchoscopy and the bronchial alveolar lavage yesterday and that is also still pending for now. Initial sputum sample was positive for Moraxella. The patient remains on IV Rocephin History of hypertension. History of kidney stones. History of a lung mass, status post fine-needle aspiration, which revealed a benign lesion. Plan: IV fluids to KVO Provide the patient incentive spirometer Voice improving Continue IV Rocephin regarding the Moraxella infection Continue Decadron 6 mg by mouth on a daily basis, this will be gradually Swallow is appropriate Home medications have been resumed increase mobility and discharge planning
[2022-06-12] MEDS: HEPARIN SODIUM,PORCINE/PF 5,000 UNIT/0.5 ML SYRINGE SQ SCH (20:57)
[2022-06-13] MEDS: hydrALAZINE HCL 20 MG/ML 1 ML VIAL IVP PRN (00:25)
[2022-06-13] MEDS: IPRATROPIUM-ALBUTEROL 3 ML NEB INHALATION SCH ×2 (07:38→11:31)
[2022-06-13 08:45] LABS: Basophils # (A) 0.1 k/uL (0-0.2); Basophils % (A) 0 %; Eosinophils # (A) 0.4 k/uL (0-0.7); Eosinophils % (A) 2 %; HCT 38.4 % (34.0-46.0); HGB 12.6 gm/dL (11.4-16.0); Lymphocytes # (A) 2.4 k/uL (1.0-4.8); Lymphocytes % (A) 14 %; MCH 31.5 pg (25.0-35.0); MCHC 32.9 g/dL (31.0-37.0); MCV 95.7 fL (80.0-100.0); Mean Platelet Volume 8.6; Monocytes # (A) 0.9 k/uL (0-1.0); Monocytes % (A) 5 %; Neutrophils # (A) 12.9 k/uL (1.3-7.7); Neutrophils % (A) 76 %; Platelet Count 246 k/uL (150-450); RBC 4.01 m/uL (3.80-5.40); RDW 13.8 % (11.5-15.5)
[2022-06-13] MEDS: dexAMETHasone 2 MG TAB PO SCH (09:34)
[2022-06-13] MEDS: LOSARTAN 50 MG TAB PO SCH (09:35)
[2022-06-13] MEDS: amLODIPine 10 MG TAB PO SCH (09:35)
[2022-06-13] MEDS: HEPARIN SODIUM,PORCINE/PF 5,000 UNIT/0.5 ML SYRINGE SQ SCH (09:35)
[2022-06-13] MEDS: FAMOTIDINE 20 MG/2 ML VIAL IV SCH (09:35)
[2022-06-13 10:21] VITALS: RESP 16
--- NOTE | 2022-06-13 12:31 | P.DS ---
Providers Date of admission: 06/05/22 09:47 Attending physician: Chilo Jones MD Consults: 06/05/22 09:55 Consult Physician Stat Consulting Provider: Berto Simpson Reason/Comments: angioedema with vent dependance Do you want consulting provider notified?: Yes Primary care physician: Richa Somers Hospital Course: Diagnoses: Severe angioedema requiring short-term mechanical ventilation, improved. Suspected ALLERGIC to lisinopril (avoid in the future) Acute hypoxic respiratory failure, improving Right more than left lower lobe pneumonia, status post bronchoscopy and bronchoalveolar lavage on 06/10 Nicotine dependence Leukocytosis, secondary to infection, reactive and steroid effect Generalized weakness and deconditioning. Diarrhea with C. diff negative, most likely reactive gastroenteritis, Respond to treatment and improving Hospital course: Marcela Alanis is a 77 yo F with PMH of HTN who presented to the ED with shortness of breath and tongue swelling. Pt intubated and sedated,, eventually patient got extubated. Patient currently she is on 2 L of oxygen per minute via nasal cannula. Also she was noticed saturating 94% on room air. Patient has been evaluated by pulmonary team and she was found to have angioedema and possible acute tracheal bronchitis with pneumonia mainly in the right lower lobe and she was treated with antibiotic in the form of ceftriaxone. Also she was on dexamethasone for her ALLERGIC reaction. Pulmonary team will follow the patient closely. Today her chest pain and dyspnea improved, she denies any other symptoms, her airways are patent and she is breathing quietly, slightly tachypneic, no more GI or urinary symptoms. No adequate weakness or numbness. Patient was cleared for discharge by pulmonary service. Discontinue lisinopril (recommended total voided for ALLERGIC reaction) and placed on losartan and she tolerates that well. Also discharge and Medrol Dosepak Problems and management plan were discussed with the patient and he verbalized understanding and acceptance Patient was found stable and can be discharged to [facility] in guarded prognosis in guarded prognosis however he needs follow-up as an outpatient. Patient was instructed to follow up with PCP Dr. Chaudhry within one week and patient agrees Patient was instructed to follow up with her flight deck officer Dr. Simpson in 1-2 weeks Physical exam Gen: patient is a AAOx3, no distress CVS: S1-S2, RRR, no murmur -Lungs: B/L CTA, no wheezing. Mildly tachypneic. Abdomen: soft, no distention, no tenderness, positive bowel sounds Extremity: no leg edema or induration Time spent more than 35 minutes Patient Condition at Discharge: Serious Plan - Discharge Summary Discharge Rx Participant: Yes New Discharge Prescriptions: No Action lisinopriL 40 mg PO DAILY Discharge Medication List lisinopriL 40 mg PO DAILY 06/05/22 [History] Follow up Appointment(s)/Referral(s): Berto Simpson DO [Doctor of Osteopathic Medicine] - 1 Week None,Stated [REFERRING] - 1-2 days Richa Somers DO [Primary Care Provider] - 1 Week
[2022-06-13 13:16] VITALS: BP 120/58; PULSE 86; TEMP 97.3
--- NOTE | 2022-06-13 15:31 | P.PN ---
Subjective Progress Note Date: 06/13/22 On 06/09/2022, the patient is awake and alert and she is off sedation. She is following simple commands. She has no lip swelling or tongue swelling of this morning. She is on a mechanical ventilator. She is intubated by a #[id number]. She is on assist control mode with a rate of 18 with a tidal volume of 450 and FiO2 of 30% with a PEEP of 5. Blood gas showed a pH of 7.36 with a pCO2 of 35 and pO2 of 79. The patient is on Decadron 6 mg IV every 6 hours, Benadryl 25 mg every 6 hours, Pepcid 20 mg IV every 12 hours. She is covered with IV Zosyn as an empiric antibiotic coverage. The microbial culture from the sputum showed Moraxella catarrhalis. She is afebrile. She is hemodynamically stable. Noted the patient was taken lisinopril and the patient was taking nonsteroidal anti- and hematocrit medications on an outpatient basis. The patient has no other issues for now. Hemodynamically stable. Urine output is adequate. Blood work from today showed a white cell count of 11.1 with a hemoglobin of 11.4 and a platelet count of 255. The sodium is at 138, BUN is at 32 with a creatinine of 0.6 and a potassium level of 4.3. On 06/10/2022, the patient is awake and alert and the patient is extubated. I was able to successfully extubate the patient yesterday without any major difficulties. She continues to have some hoarseness for now. For the most part, the patient is doing well and she has no specific complaints. She is sitting up on a chair. She is currently on oxygen on 2 L/m nasal cannula. No chest x-rays available from today. The chest x-ray from yesterday showed some patchy infiltration of the right lower lobe that needs to be further monitored. No tongue swelling. No lip swelling. The patient's swallow is adequate for now. The blood work from today shows a white second of 15.3 with a hemoglobin of 12.3 and a platelet count of 6, BUN is 27 with a creatinine of 0.6 and a sodium level is at 40. No other significant events. She will go 4 extremities without limitation and the patient remains on IV Zosyn. On today's evaluation of 06/11/2022, the patient remains extubated. Her wasn't gradually improving. She remains on Decadron which is being given intravenous 6 mg by mouth daily and the patient is completing a course of IV Rocephin. She is on bronchodilators around the clock. She is weak. She has a congested cough. She remains on O2 at 2 L/m nasal cannula. She was transferred out of the intensive care unit. She is on normal saline at the rate of 75 mL an hour. The blood work from today shows a white second of 50 with a hemoglobin of 12.3, BUN is 27 with a creatinine of 0.6 and a sodium level is at 140. On 06/12/2022, the patient continues to improve. Speech is improved and was connected a 6 is also improved. No new complaints otherwise for now. She remains on Decadron 6 mg by mouth daily. She remains on IV Rocephin and bronch odilators. Communicating. Ambulating. IV fluids running at 75 mL an hour and this will be cut down to KVO. No other significant events otherwise for now. No blood work from today. Stool for C. diff has been negative. On 06/13/2022, the patient is being seen for a follow-up. She is doing extr kary well. No swelling in her neck or tongue or lip area. No shortness of breath. Completed course of antibiotics regarding Haemophilus influenza type b bronchitis/pneumonia. No chest pain. No shortness of breath. She is a bit weak and she may benefit from rehabilitation. For the most part, the patient's condition is stable. A repeat Covid 19 testing was done and it was negative. Blood pressures controlled with a combination of Norvasc and Cozaar. No active diarrhea at this point in time. Objective - Vital Signs Vital signs: Vital Signs Temp 97.3 F L 06/13/22 12:00 Pulse 86 06/13/22 12:00 Resp 16 06/13/22 12:00 BP 120/58 06/13/22 12:00 Pulse Ox 92 L 06/13/22 12:00 FiO2 30 06/09/22 11:12 Intake & Output 06/12/22 06/13/22 06/13/22 18:59 06:59 18:59 Intake Total 118 700 120 Output Total 650 Balance 118 700 -530 Weight 64 kg Intake: Oral 118 700 120 Output: Urine 650 Other: Voiding Method External Catheter External Catheter # Bowel Movements 2 1 - Exam No acute distress, OA x3 , extubated and the patient is currently on 2 L O2 nasal cannula HEENT examination is grossly unremarkable. Neck supple. Full range of motion. No adenopathy thyromegaly or neck vein distention. Cardiovascular examination reveals regular rhythm rate. S1-S2 normal. No S3 or S4. No discernible murmur noted. Lungs reveal scattered bilateral rhonchi. Breath sounds are coarse. No wheezes or crackles. Breath sounds are equal bilaterally. Abdomen soft bowel sounds are heard. No masses or tenderness. Extremities are intact. No cyanosis clubbing or edema. Skin is without rash or lesion. Neurologically, the patient is awake and alert and the patient does not have any focal neurological deficit. Cranial nerves are essentially intact.. - Labs CBC & Chem 7: 06/13/22 07:48 06/10/22 06:03 Labs: Abnormal Lab Results - Last 24 Hours (Table) 06/13/22 Range/Units 07:48 WBC 17.0 H (3.8-10.6) k/uL Neutrophils # 12.9 H (1.3-7.7) k/uL Assessment and Plan Plan: Severe angioedema, with airway compromise, requiring intubation and mechanical ventilation on 06/05/2022. The patient was extubated on 06/09/2022 after successful treatment of angioedema with steroids and Benadryl and H2 blockers. The patient was extubated and the patient is currently on 2 L of oxygen by nasal cannula. The patient's angioedema is recovered and the patient was extubated without any major difficulties. No facial swelling. No tongue or lip swelling. No signs of any respiratory compromise. Moraxella catarrhalis tracheobronchitis/bronchopneumonia. Is x-ray from today showing a right lower lobe patchy infiltrates which is somewhat increased compared to yesterday. Is also some increased density in the left lung base representing either infiltrate/atelectasis. Meanwhile, the patient underwent a bronchoscopy and the bronchial alveolar lavage yesterday and that is also still pending for now. Initial sputum sample was positive for Moraxella. The patient remains on IV Rocephin History of hypertension. History of kidney stones. History of a lung mass, status post fine-needle aspiration, which revealed a benign lesion. Plan: Discharge this patient to [facility] Completed antibiotics Completed steroids We'll need rehabilitation Cleared for discharge Start VALERIA inhibitor the news a combination of Janice
== END 2022-06-13 14:40 | DRG 915 ==
LOC: EC 08:21 → 2SICU 09:47 → 3SCARD 06-10 18:11
PROVIDERS: ADMIT Family Medicine; ATTEND Family Medicine
PROC: 0BH18EZ Insertion of Endotracheal Airway into Trachea, Via Natural or Artificial Opening Endoscopic (ICD-10-PCS; 2022-06-05)
PROC: 5A1945Z Respiratory Ventilation, 24-96 Consecutive Hours (ICD-10-PCS; 2022-06-05)
PROC: 0B9F8ZX Drainage of Right Lower Lung Lobe, Via Natural or Artificial Opening Endoscopic, Diagnostic (ICD-10-PCS; principal; 2022-06-09)
DX: T78.3XXA Angioneurotic edema, initial encounter (principal); J16.8 Pneumonia due to other specified infectious organisms; J96.01 Acute respiratory failure with hypoxia; J69.0 Pneumonitis due to inhalation of food and vomit; Z99.11 Dependence on respirator [ventilator] status; I10 Essential (primary) hypertension; F17.210 Nicotine dependence, cigarettes, uncomplicated; R49.0 Dysphonia; T46.4X5A Adverse effect of angiotensin-converting-enzyme inhibitors, initial encounter; R00.0 Tachycardia, unspecified; D14.30 Benign neoplasm of unspecified bronchus and lung; J10.1 Influenza due to other identified influenza virus with other respiratory manifestations; K52.89 Other specified noninfective gastroenteritis and colitis; B96.89 Other specified bacterial agents as the cause of diseases classified elsewhere; Z20.822 Contact with and (suspected) exposure to COVID-19; Z79.899 Other long term (current) drug therapy; Z88.8 Allergy status to other drugs, medicaments and biological substances
CPT/HCPCS: 31624; 36415; 36600; 71045; 80048; 80053; 82805; 83735; 83880; 84145; 85025; 87070; 87102; 87116; 87205; 87206; 87252; 87324; 87496; 87498; 87502; 87529; 87634; 87635; 87798; 88108; 88305; 89050; 94002; 94003; 94640; 94760; 96365; 96366; 96367; 96372; 96375; 96376; 99285

== ENCOUNTER → 2025-01-06 | Outpatient (CLI) | payer MEDICARE, OTHER ==
--- NOTE | 2025-01-06 18:00 | MM ---
Reason for Exam: Screening (asymptomatic). Last mammogram was performed 2 year(s) and 7 month(s) ago. Patient History: Menarche at age 10. First Full-Term at age 19. Postmenopausal. Risk Values: Elsie 5 year model risk: 1.3%. NCI Lifetime model risk: 2.2%. Prior Study Comparison: 09/01/2019 Bilateral Screening Mammogram, [facility]. 05/23/2021 Bilateral Screening Mammogram, [facility]. 05/30/2022 Bilateral MG screening mammo w CAD, [facility]. Tissue Density: The breasts are heterogeneously dense, which may obscure small masses. Findings: Analyzed By CAD. Benign oil cyst calcifications redemonstrated on the left. There is no suspicious group of microcalcifications or new suspicious mass in either breast. Overall Assessment: Benign, BI-RAD 2 Management: Screening Mammogram of both breasts in 1 year. Patient should continue monthly self-breast exams. A clinical breast exam by your physician is recommended on an annual basis. This exam should not preclude additional follow-up of suspicious palpable abnormalities. Note on Elsie scores and lifetime risk: 1. A Elsie score greater than 3% is considered moderate risk. If this is the case, consider specialist referral to assess eligibility for a risk reducing agent. 2. If overall lifetime risk for the development of breast cancer is 20% or higher, the patient may qualify for future screening with alternating mammogram and breast MRI. [facility], , 01/06/2025 5:57 PM. Electronically signed and approved by: Alistair Díaz M.D. Radiologist
== END | disposition home or self-care (01) ==
LOC: RADMAMWWP 09:43
PROVIDERS: ATTEND Family Medicine
DX: Z12.31 Encounter for screening mammogram for malignant neoplasm of breast (principal); R92.333 Mammographic heterogeneous density, bilateral breasts; R92.1 Mammographic calcification found on diagnostic imaging of breast; Z78.0 Asymptomatic menopausal state
CPT/HCPCS: 77067